=== PATIENT | male | born 1930 | race Caucasian/White ===

== ENCOUNTER 2017-12-19 08:16 | Emergency (ER) | payer MEDICARE, OTHER ==
[2017-12-19] MEDS ORDERED: Triamcinolone Acetonide 40 MG/ML 1 ML MDV INJECT ONE (08:19)
--- NOTE | 2017-12-19 08:37 | EDM.PDOC ---
ED HPI GENERAL MEDICAL PROBLEM - General Chief Complaint: Upper Extremity Injury/Pain Stated Complaint: right shoulder pain Time Seen by Provider: 12/19/17 08:16 Source of Information: Reports: Family (Son, Jacobo), Old Records ([facility] chart/EMR) History Limitations: Reports: No Limitations - History of Present Illness INITIAL COMMENTS - FREE TEXT/NARRATIVE: The patient was brought to the emergency room via private automobile by her son for evaluation of a three-day history of 10/10 progressive right shoulder pain. No history of fall, injury, etc., although the patient did drive back from [place] just prior to onset of the above symptoms. His rheumatoid arthritis is otherwise stable with high-dose daily aspirin use required. No recent history of abdominal pain, heartburn, nausea, diarrhea, melena, gross hematochezia, or any food intolerance, including fatty foods, etc.. The patient also denies any recent fever, cough, wheezing, dyspnea, etc.. The patient denies any chest pain/ pressure, heart flutter, dizziness, orthostasis, orthopnea, diaphoresis, paresthesias, recent decreased exercise tolerance, or any other anginal-type symptoms. Onset: Gradual Onset Date: 12/17/17 Duration: Constant, Getting Worse Location: Reports: Upper Extremity, Right. 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 Denies: Acetaminophen, Cold Therapy, NSAIDS Right Shoulder Pain Score (Numeric/FACES): 10 - Related Data Allergies Allergy/AdvReac Type Severity Reaction Status Date / Time No Known Allergies Allergy Verified 10/13/14 10:00 Home Meds: Home Meds Pregabalin [Lyrica] 75 mg PO BID #60 cap 03/09/15 [Rx] Aspirin 325 mg PO ASDIRECTED PRN 12/19/17 [History] Cyclobenzaprine [Flexeril] 10 mg PO TID PRN #30 tab 12/19/17 [Rx] Docusate Sodium [Colace] 100 mg PO TID PRN 12/19/17 [History] Montelukast [Singulair] 10 mg PO DAILY 12/19/17 [History] Omeprazole 20 mg PO QAM 12/19/17 [History] Tamsulosin [Flomax] 0.4 mg PO BEDTIME 12/19/17 [History] Past Medical History Cardiovascular History: Reports: Afib, Arrhythmia, Bypass, CAD, High Cholesterol , Hypertension, Stents, Other (See Below) Other Cardiovascular History: PACs and intermittent atrial fibrillation with previous Coumadin therapy Respiratory History: Reports: COPD, Intubation, Previous, Pulmonary Fibrosis, Sleep Apnea. Denies: Intubation, Difficult Gastrointestinal History: Reports: Cholelithiasis, GERD, Hemorrhoids Genitourinary History: Reports: BPH, Hydronephrosis, Renal Calculus Musculoskeletal History: Reports: Amputation, Arthritis, Back Pain, Chronic, Fracture, Neck Pain, Chronic, Osteoarthritis, RA, Other (See Below) Other Musculoskeletal History: 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 Juvenile rheumatoid arthritis Neurological History: Reports: Neuropathy, Diabetic, Neuropathy, Peripheral, Other (See Below) Other Neuro History: Acute encephalopathy r/t pain medications. CT of brain on negative for bleed or stroke. 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, Measles, MRSA, VRE - Past Surgical History HEENT Surgical History: Reports: Cataract Surgery Cardiovascular Surgical History: Reports: Coronary Artery Bypass, Other (See Below). Denies: Coronary Artery Stent Other Cardiovascular Surgeries/Procedures: CABG 3 with the patient denying previous PTCA/stents despite previous medical records GI Surgical History: Reports: Cholecystectomy Male Surgical History: Reports: Lithotripsy (ESWL), Renal Calculus Neurological Surgical History: Reports: Lumbar Spine, Spinal Fusion, Other (See Below) Other Neurological Surgeries/Procedures: L3-L5 fusion Musculoskeletal Surgical History: Reports: Amputation, Hip Replacement, Knee Replacement, Other (See Below) Other Musculoskeletal Surgeries/Procedures:: Right hip TEP, bilateral total knee arthroplasties. 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 peripheral vascular disease and postoperative infection from toenail excision - Past Imaging History Past Imaging History: Reports: CALEB Screen (Positive CALEB screen on 09/12/14), CAT Scan (CT of the brain on 02/18/15), Venous Doppler (Left leg on 08/13/10) Social & Family History - Family History Family Medical History: Noncontributory Cardiac: Reports: CAD Oncologic: Reports: Prostate, Other (See Below) Other Oncologic Family History: Father with prostate cancer - Tobacco Use Smoking Status *Q: Current Every Day Smoker Tobacco Use Within Last Twelve Months: Cigarettes Years of Tobacco use: 73 Packs/Tins Daily: 0.5 Packs/Tins Daily Comment: Patient started smoking at age 14 with maximum use of one pack per day Used Tobacco, but Quit: No Smoking Cessation Information Provided To Patient: Yes Second Hand Smoke Exposure: No Second Hand Smoke Education Provided: No - Alcohol Use Days Per Week of Alcohol Use: 0 - Recreational Drug Use Recreational Drug Use: No - Living Situation & Occupation Living situation: Reports: , Alone Occupation: Retired ED ROS GENERAL - Review of Systems Review Of Systems: ROS reveals no pertinent complaints other than HPI. ED EXAM, GENERAL - Physical Exam Exam: See Below Exam Limited By: No Limitations General Appearance: Alert, WD/WN, Moderate Distress Head: Atraumatic, Normocephalic Neck: Normal Inspection, Supple, Non-Tender, Full Range of Motion. No: Lymphadenopathy (L), Lymphadenopathy (R), Thyromegaly Respiratory/Chest: No Respiratory Distress, Lungs Clear, Normal Breath Sounds, No Accessory Muscle Use, Chest Non-Tender. No: Pleural Rub, Retractions Cardiovascular: No Edema, No Gallop, No JVD, No Murmur, No Rub, Extra Beats ( Regular rate). No: Gallop/S3, Gallop/S4, Friction Rub Peripheral Pulses: 2+: Radial (L), Radial (R) GI/Abdominal: Normal Bowel Sounds, Soft, Non-Tender, No Organomegaly, No Distention, No Abnormal Bruit, No Mass, Pelvis Stable. No: Guarding (Male) Exam: Deferred Rectal (Males) Exam: Deferred Back Exam: Normal Inspection, Full Range of Motion. No: CVA Tenderness (L), CVA Tenderness (R), Muscle Spasm Extremities: No Pedal Edema, Normal Capillary Refill, Limited Range of Motion ( Severe secondary to shoulder pain with moderate anterior right shoulder palpation pain but no effusion, instability, etc.), Other (Right leg below the knee amputation). No: Joint Swelling, Leg Pain Neurological: Alert, Oriented, CN II-XII Intact, Normal Cognition, No Motor/ Sensory Deficits, Other (Patient using motorized wheelchair). No: Normal Gait Psychiatric: Normal Affect, Normal Mood Skin Exam: Warm, Dry, Intact, Normal Color, No Rash. No: Wound/Incision Lymphatic: No Adenopathy ED GENERAL MEDICAL PROCEDURES - Additional/Other Procedure(s) Other (Free Text) Procedure(s): The anterior surface of the right shoulder was disinfected with Betadine swabs 3 and multiple alcohol wipes. Mixture of 1 mL of Kenalog, 40 mg/mL, and 1.5 mL of 1% Xylocaine was used to perform an anterior right shoulder injection by sterile technique without complications Course - Vital Signs Last Recorded V/S: Last Vital Signs Temp 36.1 C 12/19/17 08:16 Pulse 78 12/19/17 08:16 Resp 20 12/19/17 08:16 BP 117/70 12/19/17 08:16 Pulse Ox 100 12/19/17 08:16 Vital Signs - 24 hr 12/19/17 12/19/17 08:16 09:02 Temperature [ 36.1 C 36.1 C Oral] Pulse, 78 76 Peripheral [ Left Pulse Oximetry] Respiratory 20 20 Rate Blood Pressure 117/70 122/68 [Left Upper Arm ] O2 Sat by Pulse 100 100 Oximetry - Orders/Labs/Meds Orders: Active Orders 24 hr Category Date Time Status Cardiac Monitoring [RC] . DIRECTED Care 12/19/17 08:41 Ordered Shoulder Comp Rt [CR] Stat Exams 12/19/17 08:19 Ordered Obtain Past Medical Record [OM.PC] Routine Oth 12/19/17 08:19 Active Labs: None Meds: Medications Discontinued Medications Generic Name Dose Route Start Last Admin Trade Name Freq PRN Reason Stop Dose Admin Lidocaine HCl 5 ml 12/19/17 08:20 12/19/17 08:42 Xylocaine-Mpf 1% INJECT 12/19/17 08:21 5 ml ONETIME ONE Administration Triamcinolone Acetonide 40 mg 12/19/17 08:19 12/19/17 08:42 Kenalog-40 INJECT 12/19/17 08:20 40 mg ONETIME ONE Administration - Radiology Interpretation Free Text/Narrative:: X-rays of the right shoulder, complete, shows moderate to severe osteoarthritic changes including osteoporosis with biceps tendon calcification but no fracture or dislocation 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 Departure - Departure Time of Disposition: 09:25 Disposition: Home, Self-Care 01 Clinical Impression: Right shoulder pain, Rheumatoid arthritis, Peptic reflux disease, Hypertension , COPD (chronic obstructive pulmonary disease), Tobacco abuse counseling, Atrial fibrillation, Coronary artery disease - Discharge Information Prescriptions: Cyclobenzaprine [Flexeril] 10 mg PO TID PRN #30 tab PRN Reason: Spasms Instructions: Shoulder Pain, [id number] Referrals: Florencio Mendoza FORENSIC MEDICAL EXAMINER [Primary Care Provider] - Forms: ED Department Discharge Additional Instructions: 1. Followup with your regular provider in 7-10 days as directed. 2. Tylenol 650 mg by mouth every 4 hours when necessary as directed. 3. BenGay or equivalent, heating pad, and/or ice packs as directed. 4. Sedation, confusion, and dry mouth precautions with Flexeril as discussed. May decrease to one half tablets, if these symptoms occur 5. Stop all tobacco use CHAYO as directed/per provided information and consider contacting Quit [facility]ne, etc.. - Problem List & Annotations (1) Right shoulder pain SNOMED Code(s): 68831559, 65267481 Code(s): M25.511 - PAIN IN RIGHT SHOULDER Status: Acute Priority: High Onset Date: ~12/17/17 Annotation/Comment:: Shoulder injection given as above. Symptomatic relief as per discharge instructions. Patient strongly encouraged to use additional Tylenol, topical therapy, etc. as directed with range of motion exercises discussed Qualifiers: Chronicity: acute Qualified Code(s): M25.511 - Pain in right shoulder (2) Rheumatoid arthritis SNOMED Code(s): 76873427 Code(s): M06.9 - RHEUMATOID ARTHRITIS, UNSPECIFIED Status: Chronic Priority: High Annotation/Comment:: History of juvenile rheumatoid arthritis otherwise stable by history with exception of shoulder pain today Qualifiers: Rheumatoid arthritis location: multiple sites Rheumatoid factor presence: unspecified presence Qualified Code(s): M06.9 - Rheumatoid arthritis, unspecified (3) Atrial fibrillation SNOMED Code(s): 66972179 Code(s): I48.91 - UNSPECIFIED ATRIAL FIBRILLATION Status: Chronic Priority: Medium Annotation/Comment:: Previous history atrial fibrillation with Coumadin therapy, however the patient denies this at this time. Note PVCs versus PACs with apparent conduction as above. No history of chest pain or anginal type symptoms. Qualifiers: Atrial fibrillation type: paroxysmal Qualified Code(s): I48.0 - Paroxysmal atrial fibrillation (4) Coronary artery disease SNOMED Code(s): 13376458 Code(s): I25.10 - ATHSCL HEART DISEASE OF [place] CORONARY ARTERY W/O ANG PCTRS Status: Chronic Priority: Medium Current Visit: Yes Annotation/ Comment:: As above Qualifiers: Coronary Disease-Associated Artery/Lesion type: bypass graft [place] vs. transplanted heart: [place] heart Associated angina: without angina Qualified Code(s): I25.810 - Atherosclerosis of coronary artery bypass graft(s) without angina pectoris (5) COPD (chronic obstructive pulmonary disease) SNOMED Code(s): 48721107 Code(s): J44.9 - CHRONIC OBSTRUCTIVE PULMONARY DISEASE, UNSPECIFIED Status : Chronic Priority: Medium Annotation/Comment:: History of sleep apnea. No recent fever or bronchitic type symptoms despite persistent tobacco use Qualifiers: COPD type: emphysema Emphysema type: panlobular Qualified Code(s): J43.1 - Panlobular emphysema (6) Hypertension SNOMED Code(s): 90878842 Code(s): I10 - ESSENTIAL (PRIMARY) HYPERTENSION Status: Chronic Priority : Medium Annotation/Comment:: Continue to observe closely by his regular provider with history of medication noncompliance and somewhat poor preventative healthcare by his history Qualifiers: Hypertension type: essential hypertension Qualified Code(s): I10 - Essential (primary) hypertension (7) PVD (peripheral vascular disease) SNOMED Code(s): 593005628 Code(s): I73.9 - PERIPHERAL VASCULAR DISEASE, UNSPECIFIED Status: Chronic Priority: Medium Annotation/Comment:: Previous history of leg amputation as above. Otherwise stable by history (8) Peptic reflux disease SNOMED Code(s): 080197068 Code(s): K21.9 - GASTRO-ESOPHAGEAL REFLUX DISEASE WITHOUT ESOPHAGITIS Status: Chronic Priority: Medium Annotation/Comment:: Stable by history despite significant aspirin use (9) Tobacco abuse counseling SNOMED Code(s): 041816295, 005138730, 137104821 Code(s): Z71.6 - TOBACCO ABUSE COUNSELING Status: Chronic Priority: Medium Current Visit: Yes Annotation/Comment:: Tobacco cessation encouraged , however the patient is not interested in stopping smoking at this time - Problem List Review Problem List Initiated/Reviewed/Updated: Yes - My Orders Last 24 Hours: My Active Orders 12/19/17 08:19 Shoulder Comp Rt [CR] Stat Obtain Past Medical Record [OM.PC] Routine 12/19/17 08:41 Cardiac Monitoring [RC] . DIRECTED - Assessment/Plan Last 24 Hours: My Active Orders 12/19/17 08:19 Shoulder Comp Rt [CR] Stat Obtain Past Medical Record [OM.PC] Routine 12/19/17 08:41 Cardiac Monitoring [RC] . DIRECTED Assessment:: As above Plan: As above. Extensive precautions were given to the patient and his son, who are in agreement with the treatment plan. See Patient Instructions for further treatment and plan.
[2017-12-19 09:32] VITALS: BP 122/68
== END 2017-12-19 09:30 | disposition home or self-care (01) ==
LOC: LL.ED 08:16
DX: M06.9 Rheumatoid arthritis, unspecified (principal); M25.511 Pain in right shoulder; I48.91 Unspecified atrial fibrillation; I25.810 Atherosclerosis of coronary artery bypass graft(s) without angina pectoris; F17.210 Nicotine dependence, cigarettes, uncomplicated; Z95.1 Presence of aortocoronary bypass graft; E78.00 Pure hypercholesterolemia, unspecified; I10 Essential (primary) hypertension; J44.9 Chronic obstructive pulmonary disease, unspecified; K21.9 Gastro-esophageal reflux disease without esophagitis; Z87.442 Personal history of urinary calculi; E11.40 Type 2 diabetes mellitus with diabetic neuropathy, unspecified; Z86.19 Personal history of other infectious and parasitic diseases; Z86.14 Personal history of Methicillin resistant Staphylococcus aureus infection; Z79.82 Long term (current) use of aspirin; Z79.899 Other long term (current) drug therapy
CPT/HCPCS: 73030; 99284; J3301

== ENCOUNTER 2020-06-14 02:37 | Emergency (ER) | payer MEDICARE, OTHER ==
[2020-06-14] MEDS ORDERED: cefTRIAXone 2 GM in Sodium Chloride 0.9% 100 ML IV ONE (04:00)
[2020-06-14] MEDS ORDERED: Piperacillin/Tazobactam 4.5 GM in Sodium Chloride 0.9% 100 ML IV ONE (04:01)
[2020-06-14] MEDS ORDERED: Azithromycin 500 MG in Sodium Chloride 0.9% 250 ML IV ONE (04:02)
--- NOTE | 2020-06-14 04:08 | EDM.PDOC ---
ED HPI GENERAL MEDICAL PROBLEM - General Chief Complaint: General Stated Complaint: SOB Pneumonia Time Seen by Provider: 06/14/20 02:45 Source of Information: Reports: Patient, EMS, Family History Limitations: Reports: Altered Mental Status, Respiratory Distress - History of Present Illness INITIAL COMMENTS - FREE TEXT/NARRATIVE: Pt brought to ER via EMS for SOB and confusion Pt seen in clinic 06/07 for bilateral pneumonia and started on Zithromax, prednisone and an inhaler Pt with worsening symptoms tonight No known Covid exposure Unknown if tested for Covid Pt much more confused tonight EMS notes sats 80% on RA initially with RR 30's SBP in the 90's HR in the low 100's Onset: Gradual Duration: Day(s): Location: Reports: Chest Associated Symptoms: Reports: Shortness of Breath, Other (Confusion) - Related Data Allergies Allergy/AdvReac Type Severity Reaction Status Date / Time No Known Allergies Allergy Verified 06/14/20 02:55 Home Meds: Home Meds Pregabalin [Lyrica] 75 mg PO BID #60 cap 03/09/15 [Rx] Aspirin 325 mg PO ASDIRECTED PRN 12/19/17 [History] Cyclobenzaprine [Flexeril] 10 mg PO TID PRN #30 tab 12/19/17 [Rx] Docusate Sodium [Colace] 100 mg PO TID PRN 12/19/17 [History] Montelukast [Singulair] 10 mg PO DAILY 12/19/17 [History] Omeprazole 20 mg PO QAM 12/19/17 [History] Tamsulosin [Flomax] 0.4 mg PO BEDTIME 12/19/17 [History] Past Medical History Cardiovascular History: Reports: Afib, Arrhythmia, Bypass, CAD, High Cholesterol, Hypertension, Stents, Other (See Below) Other Cardiovascular History: PACs and intermittent atrial fibrillation with previous Coumadin therapy Respiratory History: Reports: COPD, Intubation, Previous, Pulmonary Fibrosis, Sleep Apnea Gastrointestinal History: Reports: Cholelithiasis, GERD, Hemorrhoids Genitourinary History: Reports: BPH, Hydronephrosis, Renal Calculus Musculoskeletal History: Reports: Amputation, Arthritis, Back Pain, Chronic, Fracture, Neck Pain, Chronic, Osteoarthritis, RA, Other (See Below) Other Musculoskeletal History: 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 Juvenile rheumatoid arthritis Neurological History: Reports: Neuropathy, Diabetic, Neuropathy, Peripheral, Other (See Below) Other Neuro History: Acute encephalopathy r/t pain medications. CT of brain on 02/18/15 negative for bleed or stroke. 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, Measles, MRSA, VRE - Past Surgical History HEENT Surgical History: Reports: Cataract Surgery Cardiovascular Surgical History: Reports: Coronary Artery Bypass, Other (See Below) Other Cardiovascular Surgeries/Procedures: CABG 3 with the patient denying previous PTCA/stents despite previous medical records GI Surgical History: Reports: Cholecystectomy Male Surgical History: Reports: Lithotripsy (ESWL), Renal Calculus Neurological Surgical History: Reports: Lumbar Spine, Spinal Fusion, Other (See Below) Other Neurological Surgeries/Procedures: L3-L5 fusion Musculoskeletal Surgical History: Reports: Amputation, Hip Replacement, Knee Replacement, Other (See Below) Other Musculoskeletal Surgeries/Procedures:: Right hip TEP, bilateral total knee arthroplasties. 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 peripheral vascular disease and postoperative infection from toenail excision - Past Imaging History Past Imaging History: Reports: CALEB Screen (Positive CALEB screen on 09/12/14), CAT Scan (CT of the brain on 02/18/15), Venous Doppler (Left leg on 08/13/10) Social & Family History - Family History Family Medical History: Noncontributory Cardiac: Reports: CAD Oncologic: Reports: Prostate, Other (See Below) Other Oncologic Family History: Father with prostate cancer - Tobacco Use Smoking Status *Q: Current Every Day Smoker Years of Tobacco use: 50 Packs/Tins Daily: 1.5 - Caffeine Use Caffeine Use: Reports: None - Recreational Drug Use Recreational Drug Use: No - Living Situation & Occupation Living situation: Reports: , Alone Occupation: Retired ED ROS GENERAL - Review of Systems Review Of Systems: See Below Constitutional: Reports: Weakness HEENT: Reports: No Symptoms Respiratory: Reports: Shortness of Breath Cardiovascular: Reports: Dyspnea on Exertion, Edema GI/Abdominal: Reports: No Symptoms Musculoskeletal: Reports: No Symptoms Skin: Reports: No Symptoms Neurological: Reports: Confusion ED EXAM, GENERAL - Physical Exam Exam: See Below Exam Limited By: Respiratory Distress General Appearance: Lethargic, Moderate Distress Throat/Mouth: Normal Oropharynx Neck: Supple Respiratory/Chest: Decreased Breath Sounds, Other (RR 30's Increased work of breathing Using accesory muscles) Cardiovascular: Tachycardia (Rate 105) GI/Abdominal: Soft Extremities: Pedal Edema (3+ pitting edema bilaterally) Neurological: Confused Course - Vital Signs Last Recorded V/S: Last Vital Signs Temp 98.3 F 06/14/20 02:40 Pulse 90 06/14/20 03:43 Resp 32 H 06/14/20 03:43 BP 109/58 L 06/14/20 03:43 Pulse Ox 95 06/14/20 03:43 - Orders/Labs/Meds Orders: Active Orders 24 hr Category Date Time Status Chest 1V Frontal [CR] Stat Exams 06/14/20 02:41 Taken CULTURE BLOOD [BC] Stat Lab 06/14/20 03:05 Received CULTURE BLOOD [BC] Stat Lab 06/14/20 03:10 Received Azithromycin [Zithromax] 500 mg Med 06/14/20 04:02 Ordered Sodium Chloride 0.9% [Normal Saline] 250 ml IV ONETIME Piperacillin/Tazobactam [Zosyn] 4.5 gm Med 06/14/20 04:01 Ordered Sodium Chloride 0.9% [Normal Saline] 100 ml IV ONETIME Vancomycin 1 gm Med 06/14/20 04:00 Ordered Sodium Chloride 0.9% [Normal Saline] 250 ml IV ONETIME cefTRIAXone [Rocephin] 2 gm Med 06/14/20 04:00 Ordered Sodium Chloride 0.9% [Normal Saline] 100 ml IV ONETIME Blood Culture x2 Reflex Set [OM.PC] Stat Oth 06/14/20 02:41 Ordered Medication Orders Ceftriaxone Sodium 2 gm/ (Sodium Chloride) 100 mls @ 200 mls/hr IV ONETIME ONE Stop: 06/14/20 04:29 Vancomycin HCl 1 gm/ Sodium (Chloride) 250 mls @ 165 mls/hr IV ONETIME ONE Stop: 06/14/20 05:30 Piperacillin Sod/Tazobactam (Sod 4.5 gm/ Sodium Chloride) 100 mls @ 200 mls/hr IV ONETIME ONE Stop: 06/14/20 04:30 Labs: Laboratory Tests 06/14/20 06/14/20 06/14/20 Range/Units 03:05 03:05 03:05 WBC 9.8 (4.0-10.2) K/uL RBC 3.99 L (4.33-5.41) M/uL Hgb 11.5 L (13.1-16.8) g/dL Hct 34.1 L (39.0-49.0) % MCV 85.5 (84.0-98.0) fL MCH 28.8 (28.2-33.3) pg MCHC 33.7 (31.7-36.0) g/dL RDW 17.1 H (11.2-14.1) % Plt Count 181 (150-350) K/uL Neut % (Auto) 54.1 (45.0-80.0) % Lymph % (Auto) 18.0 (10.0-50.0) % [place] % (Auto) 5.0 (2.0-14.0) % Eos % (Auto) 22.2 H (0.0-5.0) % Baso % (Auto) 0.7 (0.0-2.0) % Neut # (Auto) 5.30 (1.40-7.00) K/uL Lymph # (Auto) 1.77 (0.50-3.50) K/uL [place] # (Auto) 0.49 (0.00-1.00) K/uL Eos # (Auto) 2.18 H (0.00-0.50) K/uL Baso # (Auto) 0.07 (0.00-0.20) K/uL Sodium 139 (136-145) mmol/L Potassium 4.2 (3.5-5.1) mmol/L Chloride 108 H (98-107) mmol/L Carbon Dioxide 16.5 L (21.0-32.0) mmol/L BUN 38 H (7-18) mg/dL Creatinine 1.50 H (0.51-1.17) mg/dL Est Cr Clr Drug Dosing 35.62 mL/min Estimated GFR (MDRD) 44 mL/min Glucose 91 (74-106) mg/dL Lactic Acid 0.6 (0.4-2.0) mmol/L Calcium 7.9 L (8.5-10.1) mg/dL Total Bilirubin 0.4 (0.2-1.0) mg/dL AST 36 (15-37) U/L ALT 20 (12-78) U/L Alkaline Phosphatase 89 (46-116) IU/L Total Protein 6.8 (6.4-8.2) g/dL Albumin 2.5 L (3.4-5.0) g/dL Meds: Medications Generic Name Dose Route Start Last Admin Trade Name Freq PRN Reason Stop Dose Admin Ceftriaxone Sodium 2 gm/ 100 mls @ 200 mls/hr 06/14/20 04:00 Sodium Chloride IV 06/14/20 04:29 ONETIME ONE Vancomycin HCl 1 gm/ Sodium 250 mls @ 165 mls/hr 06/14/20 04:00 Chloride IV 06/14/20 05:30 ONETIME ONE Piperacillin Sod/Tazobactam 100 mls @ 200 mls/hr 06/14/20 04:01 Sod 4.5 gm/ Sodium Chloride IV 06/14/20 04:30 ONETIME ONE - Re-Assessments/Exams Free Text/Narrative Re-Assessment/Exam: 06/14/20 04:09 Pt remains with increased work of breathing with RR in the 30's but sats 95% on 2 L Increased oxygen not improving RR or work of breathing Pt remains tachycardic and quite confused D/W Dr Blevins [facility] ER Will accept in transfer Transfer via ambulance Rocephin 2 gm IV, Zosyn 4.5 gm IV, Vanco 1 gm IV and Zithromax 500 mg IV ordered Will continue supplemental oxygen CXR shows bilateral pneumonia See lab Departure - Departure Time of Disposition: 04:15 Disposition: DC/Tfer to Acute Hospital 02 Clinical Impression: Pneumonia - Discharge Information Referrals: Nessa Cueva PA [Primary Care Provider] - Sepsis Event Note (ED) - Evaluation Sepsis Screening Result: Possible Severe Sepsis Risk - Focused Exam Vital Signs: Vital Signs Temp Pulse Resp BP Pulse Ox 06/14/20 03:43 90 32 H 109/58 L 95 06/14/20 03:13 93 14 102/56 L 96 06/14/20 02:40 98.3 F 104 H 28 H 104/55 L 94 L - My Orders Last 24 Hours: My Active Orders 06/14/20 02:41 Chest 1V Frontal [CR] Stat Blood Culture x2 Reflex Set [OM.PC] Stat 06/14/20 03:05 CULTURE BLOOD [BC] Stat 06/14/20 03:10 CULTURE BLOOD [BC] Stat 06/14/20 04:00 Vancomycin 1 gm Sodium Chloride 0.9% [Normal Saline] 250 ml IV ONETIME cefTRIAXone [Rocephin] 2 gm Sodium Chloride 0.9% [Normal Saline] 100 ml IV ONETIME 06/14/20 04:01 Piperacillin/Tazobactam [Zosyn] 4.5 gm Sodium Chloride 0.9% [Normal Saline] 100 ml IV ONETIME 06/14/20 04:02 Azithromycin [Zithromax] 500 mg Sodium Chloride 0.9% [Normal Saline] 250 ml IV ONETIME - Assessment/Plan Last 24 Hours: My Active Orders 06/14/20 02:41 Chest 1V Frontal [CR] Stat Blood Culture x2 Reflex Set [OM.PC] Stat 06/14/20 03:05 CULTURE BLOOD [BC] Stat 06/14/20 03:10 CULTURE BLOOD [BC] Stat 06/14/20 04:00 Vancomycin 1 gm Sodium Chloride 0.9% [Normal Saline] 250 ml IV ONETIME cefTRIAXone [Rocephin] 2 gm Sodium Chloride 0.9% [Normal Saline] 100 ml IV ONETIME 06/14/20 04:01 Piperacillin/Tazobactam [Zosyn] 4.5 gm Sodium Chloride 0.9% [Normal Saline] 100 ml IV ONETIME 06/14/20 04:02 Azithromycin [Zithromax] 500 mg Sodium Chloride 0.9% [Normal Saline] 250 ml IV ONETIME
[2020-06-14] MEDS ORDERED: Sodium Chloride 0.9% 10 ML Syringe FLUSH PRN (04:21)
[2020-06-14 04:43] VITALS: BP 120/56; PULSE 100
== END 2020-06-14 05:45 ==
LOC: LL.ED 02:37
DX: J18.9 Pneumonia, unspecified organism (principal); J44.9 Chronic obstructive pulmonary disease, unspecified; I10 Essential (primary) hypertension; I25.10 Atherosclerotic heart disease of native coronary artery without angina pectoris; I48.91 Unspecified atrial fibrillation; E11.42 Type 2 diabetes mellitus with diabetic polyneuropathy; N40.0 Benign prostatic hyperplasia without lower urinary tract symptoms; F17.210 Nicotine dependence, cigarettes, uncomplicated; Z95.1 Presence of aortocoronary bypass graft; Z90.49 Acquired absence of other specified parts of digestive tract; Z79.899 Other long term (current) drug therapy
CPT/HCPCS: 36415; 71045; 80053; 83605; 85025; 87040; 96365; 96367; 99285; J0696; J2543; J3370; J7050; 99284

== ENCOUNTER 2020-07-13 16:49 | Emergency (ER) | payer MEDICARE, OTHER ==
[2020-07-13] MEDS ORDERED: Nystatin Crm 30 GM Tube TOP SCH (17:22)
[2020-07-13 17:34] LABS: CHLORIDE,CL 104 mmol/L (98-107); SODIUM,NA 139 mmol/L (136-145)
--- NOTE | 2020-07-13 17:35 | EDM.PDOC ---
ED HPI GENERAL MEDICAL PROBLEM - General Chief Complaint: Skin Complaint Stated Complaint: rash Time Seen by Provider: 07/13/20 17:10 Source of Information: Reports: Patient History Limitations: Reports: No Limitations - History of Present Illness INITIAL COMMENTS - FREE TEXT/NARRATIVE: He presents to the emergency department for evaluation of a rash on the left chest wall. He felt some dampness in the area underneath the left breast when he felt inside it was very wet. He took his shirt off and was noted to have a bright red blistery rash underneath the breast tissue. It is tender to the touch but otherwise not really painful. Mildly pruritic. Rash started today. He does not think it was present this morning when he got dressed. He denies any shortness of breath or cough. No rash anywhere else. No fever or chills. No known exposures. - Related Data Allergies Allergy/AdvReac Type Severity Reaction Status Date / Time No Known Allergies Allergy Verified 06/14/20 02:55 Home Meds: Home Meds Aspirin 325 mg PO ASDIRECTED PRN 12/19/17 [History] Docusate Sodium [Colace] 100 mg PO TID PRN 12/19/17 [History] Omeprazole 20 mg PO QAM 12/19/17 [History] Gabapentin [Neurontin] 300 mg PO QPM 07/13/20 [History] Nystatin [Nystatin Crm] 1 gm TOP TID 7 Days #30 tube 07/13/20 [Rx] Past Medical History Cardiovascular History: Reports: Afib, Arrhythmia, Bypass, CAD, High Cholesterol, Hypertension, Stents, Other (See Below) Other Cardiovascular History: PACs and intermittent atrial fibrillation with previous Coumadin therapy Respiratory History: Reports: COPD, Intubation, Previous, Pulmonary Fibrosis, Sleep Apnea Gastrointestinal History: Reports: Cholelithiasis, GERD, Hemorrhoids Genitourinary History: Reports: BPH, Hydronephrosis, Renal Calculus Musculoskeletal History: Reports: Amputation, Arthritis, Back Pain, Chronic, Fracture, Neck Pain, Chronic, Osteoarthritis, RA, Other (See Below) Other Musculoskeletal History: 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 Juvenile rheumatoid arthritis Neurological History: Reports: Neuropathy, Diabetic, Neuropathy, Peripheral, Other (See Below) Other Neuro History: Acute encephalopathy r/t pain medications. CT of brain on 02/18/15 negative for bleed or stroke. 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, Measles, MRSA, VRE - Past Surgical History HEENT Surgical History: Reports: Cataract Surgery Cardiovascular Surgical History: Reports: Coronary Artery Bypass, Other (See Below) Other Cardiovascular Surgeries/Procedures: CABG 3 with the patient denying previous PTCA/stents despite previous medical records GI Surgical History: Reports: Cholecystectomy Male Surgical History: Reports: Lithotripsy (ESWL), Renal Calculus Neurological Surgical History: Reports: Lumbar Spine, Spinal Fusion, Other (See Below) Other Neurological Surgeries/Procedures: L3-L5 fusion Musculoskeletal Surgical History: Reports: Amputation, Hip Replacement, Knee Replacement, Other (See Below) Other Musculoskeletal Surgeries/Procedures:: Right hip TEP, bilateral total knee arthroplasties. 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 peripheral vascular disease and postoperative infection from toenail excision - Past Imaging History Past Imaging History: Reports: CALEB Screen (Positive CALEB screen on 09/12/14), CAT Scan (CT of the brain on 02/18/15), Venous Doppler (Left leg on 08/13/10) Social & Family History - Family History Family Medical History: Noncontributory Cardiac: Reports: CAD Oncologic: Reports: Prostate, Other (See Below) Other Oncologic Family History: Father with prostate cancer - Caffeine Use Caffeine Use: Reports: None - Living Situation & Occupation Living situation: Reports: , Alone Occupation: Retired ED ROS GENERAL - Review of Systems Review Of Systems: See Below Constitutional: Denies: Fever, Chills HEENT: Reports: No Symptoms Respiratory: Denies: Shortness of Breath, Cough Cardiovascular: Denies: Chest Pain, Palpitations Endocrine: Denies: Fatigue, Polydypsia GI/Abdominal: Denies: Abdominal Pain, Nausea, Vomiting : Denies: Discharge, Dysuria Musculoskeletal: Reports: No Symptoms Skin: Reports: Rash Neurological: Denies: Dizziness Psychiatric: Denies: Anxiety, Depression ED EXAM, SKIN/RASH Exam: See Below Exam Limited By: No Limitations General Appearance: Alert, WD/WN, No Apparent Distress Respiratory/Chest: No Respiratory Distress, Lungs Clear, Normal Breath Sounds Cardiovascular: Regular Rate, Rhythm, No Edema, No Gallop, No Murmur Skin: Other (Right red macular rash with clear drainage underneath the left [address]. Is very tender in that area. Few surrounding satellite lesions. No other rash noted.) Course - Orders/Labs/Meds Orders: Active Orders 24 hr Category Date Time Status Nystatin [Nystatin Crm] Med 07/13/20 17:22 Active 1 gm TOP TID Medication Orders Nystatin (Nystatin Crm) 1 gm TOP TID MARTELL Last Admin: 07/13/20 17:30 Dose: 1 applic Documented by: ROMY Labs: Laboratory Tests 07/13/20 07/13/20 Range/Units 17:20 17:20 WBC 7.8 (4.0-10.2) K/uL RBC 4.31 L (4.33-5.41) M/uL Hgb 12.5 L (13.1-16.8) g/dL Hct 37.9 L (39.0-49.0) % MCV 87.9 (84.0-98.0) fL MCH 29.0 (28.2-33.3) pg MCHC 33.0 (31.7-36.0) g/dL RDW 16.0 H (11.2-14.1) % Plt Count 127 L (150-350) K/uL Neut % (Auto) 60.3 (45.0-80.0) % Lymph % (Auto) 26.0 (10.0-50.0) % [place] % (Auto) 9.6 (2.0-14.0) % Eos % (Auto) 3.5 (0.0-5.0) % Baso % (Auto) 0.6 (0.0-2.0) % Neut # (Auto) 4.70 (1.40-7.00) K/uL Lymph # (Auto) 2.03 (0.50-3.50) K/uL [place] # (Auto) 0.75 (0.00-1.00) K/uL Eos # (Auto) 0.27 (0.00-0.50) K/uL Baso # (Auto) 0.05 (0.00-0.20) K/uL Sodium 139 (136-145) mmol/L Potassium 4.4 (3.5-5.1) mmol/L Chloride 104 (98-107) mmol/L Carbon Dioxide 26.3 (21.0-32.0) mmol/L BUN 21 H (7-18) mg/dL Creatinine 1.19 H (0.51-1.17) mg/dL Est Cr Clr Drug Dosing TNP Estimated GFR (MDRD) 58 mL/min Glucose 88 (74-106) mg/dL Calcium 7.8 L (8.5-10.1) mg/dL Total Bilirubin 0.3 (0.2-1.0) mg/dL AST 14 L (15-37) U/L ALT 19 (12-78) U/L Alkaline Phosphatase 73 (46-116) IU/L Total Protein 5.9 L (6.4-8.2) g/dL Albumin 2.6 L (3.4-5.0) g/dL Meds: Medications Generic Name Dose Route Start Last Admin Trade Name Freq PRN Reason Stop Dose Admin Nystatin 1 gm 07/13/20 17:22 07/13/20 17:30 Nystatin Crm TOP 1 applic TID MARTELL Administration Departure - Departure Time of Disposition: 17:37 Disposition: Home, Self-Care 01 Condition: Good Clinical Impression: Fungal rash of torso - Discharge Information *PRESCRIPTION DRUG MONITORING PROGRAM REVIEWED*: No *COPY OF PRESCRIPTION DRUG MONITORING REPORT IN PATIENT JORDYN: No Prescriptions: Nystatin [Nystatin Crm] 1 gm TOP TID 7 Days #30 tube Referrals: PCP,None [Primary Care Provider] - Forms: ED Department Discharge Additional Instructions: Apply nystatin cream to the rash 3 times daily. Okay to use a medicated talcum powder in the area as well. If rash is worsening tomorrow he should return and would consider antibiotic treatment. Follow-up as needed. - My Orders Last 24 Hours: My Active Orders 07/13/20 17:22 Nystatin [Nystatin Crm] 1 gm TOP TID - Assessment/Plan Last 24 Hours: My Active Orders 07/13/20 17:22 Nystatin [Nystatin Crm] 1 gm TOP TID
[2020-07-13 19:14] VITALS: BP 154/52; PULSE 68
== END 2020-07-13 18:15 | disposition home or self-care (01) ==
LOC: LL.ED 16:49
DX: B36.9 Superficial mycosis, unspecified (principal); I48.91 Unspecified atrial fibrillation; I10 Essential (primary) hypertension; J44.9 Chronic obstructive pulmonary disease, unspecified; M19.90 Unspecified osteoarthritis, unspecified site; E11.40 Type 2 diabetes mellitus with diabetic neuropathy, unspecified; Z95.1 Presence of aortocoronary bypass graft; Z79.82 Long term (current) use of aspirin; Z79.899 Other long term (current) drug therapy; Z95.5 Presence of coronary angioplasty implant and graft; Z79.01 Long term (current) use of anticoagulants
CPT/HCPCS: 36415; 80053; 85025; 99283; A9270-GY

== ENCOUNTER 2020-07-29 13:57 | Inpatient (IN) | payer MEDICARE, OTHER ==
[2020-07-29] MEDS ORDERED: Sodium Chloride 0.9% 10 ML Syringe FLUSH PRN (14:04)
[2020-07-29 14:54] LABS: CHLORIDE,CL 108 mmol/L (98-107); SODIUM,NA 141 mmol/L (136-145)
--- NOTE | 2020-07-29 14:56 | EDM.PDOC ---
ED HPI GENERAL MEDICAL PROBLEM - General Chief Complaint: General Stated Complaint: Weakness Time Seen by Provider: 07/29/20 14:06 Source of Information: Reports: Patient, Family History Limitations: Reports: No Limitations - History of Present Illness INITIAL COMMENTS - FREE TEXT/NARRATIVE: Patient comes to ER for evaluation of increased weakness. Usually can transfer self but now needs assist from two other people. Increased confusion. Episodes of shaking/uncertain if it is chills. Appears to have more rapid/shallow respirations than usual. No fever/chills. No HEENT changes/runny nose/sore throat. No new cough/wheeze. No pleuritic pain. No GI changes such as nausea/vomiting/bowel changes. No urinary complaints. No new neuro changes/focal weakness. - Related Data Allergies Allergy/AdvReac Type Severity Reaction Status Date / Time morphine Allergy Cannot Verified 07/29/20 17:54 Remember Home Meds: Home Meds Aspirin 325 mg PO ASDIRECTED PRN 12/19/17 [History] Docusate Sodium [Colace] 100 mg PO TID PRN 12/19/17 [History] Omeprazole 20 mg PO QAM 12/19/17 [History] Gabapentin [Neurontin] 300 mg PO TID@,,07/13/20 [History] Albuterol/Ipratropium [DuoNeb 3.0-0.5 MG/3 ML] 3 ml IN Q4HR PRN 07/29/20 [History] Budesonide [Pulmicort] 2 ml IN BID@07/29/20 [History] Past Medical History Cardiovascular History: Reports: Afib, Arrhythmia, Bypass, CAD, High Cholesterol, Hypertension, Stents, Other (See Below) Other Cardiovascular History: PACs and intermittent atrial fibrillation with previous Coumadin therapy Respiratory History: Reports: COPD, Intubation, Previous, Pulmonary Fibrosis, Sleep Apnea Gastrointestinal History: Reports: Cholelithiasis, GERD, Hemorrhoids Genitourinary History: Reports: BPH, Hydronephrosis, Renal Calculus Musculoskeletal History: Reports: Amputation, Arthritis, Back Pain, Chronic, Fracture, Neck Pain, Chronic, Osteoarthritis, RA, Other (See Below) Other Musculoskeletal History: 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 Juvenile rheumatoid arthritis Neurological History: Reports: Neuropathy, Diabetic, Neuropathy, Peripheral, Other (See Below) Other Neuro History: Acute encephalopathy r/t pain medications. CT of brain on 02/18/15 negative for bleed or stroke. 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, Measles, MRSA, VRE - Past Surgical History HEENT Surgical History: Reports: Cataract Surgery Cardiovascular Surgical History: Reports: Coronary Artery Bypass, Other (See Below) Other Cardiovascular Surgeries/Procedures: CABG 3 with the patient denying previous PTCA/stents despite previous medical records GI Surgical History: Reports: Cholecystectomy Male Surgical History: Reports: Lithotripsy (ESWL), Renal Calculus Neurological Surgical History: Reports: Lumbar Spine, Spinal Fusion, Other (See Below) Other Neurological Surgeries/Procedures: L3-L5 fusion Musculoskeletal Surgical History: Reports: Amputation, Hip Replacement, Knee Replacement, Other (See Below) Other Musculoskeletal Surgeries/Procedures:: Right hip TEP, bilateral total knee arthroplasties. Left leg below the knee amputation 2004 secondary to his peripheral vascular disease and postoperative infection from toenail excision - Past Imaging History Past Imaging History: Reports: CALEB Screen (Positive CALEB screen on 09/12/14), CAT Scan (CT of the brain on 02/18/15), Venous Doppler (Left leg on 08/13/10) Social & Family History - Family History Family Medical History: Noncontributory Cardiac: Reports: CAD Oncologic: Reports: Prostate, Other (See Below) Other Oncologic Family History: Father with prostate cancer - Caffeine Use Caffeine Use: Reports: Coffee - Living Situation & Occupation Living situation: Reports: , Alone Occupation: Retired ED ROS GENERAL - Review of Systems Review Of Systems: Comprehensive ROS is negative, except as noted in HPI. ED EXAM, GENERAL - Physical Exam Exam: See Below Exam Limited By: No Limitations General Appearance: Alert, No Apparent Distress, Other (aggressively motoring around in motorized wheelchair/inpatient/wants to go home/brings chair into contact with providers in ER. ) Eye Exam: Bilateral Eye: EOMI, PERRL Ears: Hearing Grossly Normal Nose: No: Nasal Deformity, Nasal Swelling, Nasal Drainage Throat/Mouth: Normal Lips, Normal Voice, No Airway Compromise Head: Atraumatic, Normocephalic Neck: Supple Respiratory/Chest: No Accessory Muscle Use, Chest Non-Tender, Rhonchi (bilaterally, worse on right). No: Stridor, Retractions GI/Abdominal: Soft, Non-Tender, No Distention (Male) Exam: Deferred Rectal (Males) Exam: Deferred Back Exam: Other (purplish discoloration of buttocks/two small circular errosions/one on each buttock that per electrical engineering technician is due to the snaps from patient's jeans that he sits in all day for days on end/refuses to remove). No: CVA Tenderness (L), CVA Tenderness (R), Muscle Spasm Extremities: Other (mild edema left lower leg/amputation below left knee. ) Neurological: Alert, Oriented, Normal Cognition Psychiatric: Normal Affect, Normal Mood Skin Exam: Warm, Dry, Other (see above) Course - Vital Signs Last Recorded V/S: Last Vital Signs Temp 37.6 C 07/29/20 16:40 Pulse 101 H 07/29/20 16:40 Resp 28 H 07/29/20 16:40 BP 104/48 L 07/29/20 16:40 Pulse Ox 93 L 07/29/20 16:40 - Orders/Labs/Meds Orders: Active Orders 24 hr Category Date Time Status RT Post Treatment Assessment [RC] Click to Edit Care 07/29/20 16:28 Active RT Pre-Treatment Assessment [RC] Click to Edit Care 07/29/20 16:28 Active Chest 1V Frontal [CR] Stat Exams 07/29/20 14:05 Taken PE Chest [Ang Chest] [CT] Stat Exams 07/29/20 16:20 Taken CORONAVIRUS COVID-19 MATIAS [MOLEC] Routine Lab 07/29/20 14:04 Ordered CULTURE BLOOD [BC] Stat Lab 07/29/20 14:10 Received CULTURE BLOOD [BC] Stat Lab 07/29/20 14:20 Received Albuterol/Ipratropium [Combivent Respimat] Med 07/29/20 20:00 Active 1 gm INH QID Azithromycin [Zithromax] 500 mg Med 07/29/20 16:30 Active Sodium Chloride 0.9% [Normal Saline] 250 ml IV Q24H Oseltamivir [Tamiflu] Med 07/29/20 16:30 Active 75 mg PO DAILY Sodium Chloride 0.9% [Normal Saline] 1,000 ml Med 07/29/20 16:22 Active IV .BOLUS Sodium Chloride 0.9% [Normal Saline] 250 ml Med 07/29/20 16:30 Active IV ASDIRECTED Sodium Chloride 0.9% [Saline Flush] Med 07/29/20 14:04 Active 10 ml FLUSH ASDIRECTED PRN cefTRIAXone [Rocephin] 1 gm Med 07/29/20 16:30 Active Sodium Chloride 0.9% [Normal Saline] 100 ml IV Q24H Blood Culture x2 Reflex Set [OM.PC] Stat Ot 07/29/20 14:04 Ordered Isolation [COMM] Routine Oth 07/29/20 14:50 Active Saline Lock Insert [OM.PC] Routine Ot 07/29/20 14:04 Ordered Medication Orders Albuterol/Ipratropium (Combivent Respimat) 1 gm INH QID [facility] Sodium Chloride (Normal Saline) 1,000 mls @ 75 mls/hr IV .BOLUS ONE Stop: 07/30/20 05:41 Sodium Chloride (Normal Saline) 250 mls @ 500 mls/hr IV ASDIRECTED [facility] Last Admin: 07/29/20 17:00 Dose: 500 mls/hr Documented by: SILVIA Ceftriaxone Sodium 1 gm/ (Sodium Chloride) 100 mls @ 200 mls/hr IV Q24H [facility] Last Admin: 07/29/20 18:00 Dose: 200 mls/hr Documented by: SILVIA Azithromycin 500 mg/ Sodium (Chloride) 250 mls @ 250 mls/hr IV Q24H [facility] Oseltamivir Phosphate (Tamiflu) 75 mg PO DAILY [facility] Last Admin: 07/29/20 17:56 Dose: 75 mg Documented by: SILVIA Sodium Chloride (Saline Flush) 10 ml FLUSH ASDIRECTED PRN PRN Reason: Keep Vein Open Labs: Laboratory Tests 07/29/20 07/29/20 07/29/20 Range/Units 14:04 14:10 14:10 WBC 8.8 (4.0-10.2) K/uL RBC 3.79 L (4.33-5.41) M/uL Hgb 10.6 L D (13.1-16.8) g/dL Hct 32.5 L (39.0-49.0) % MCV 85.8 (84.0-98.0) fL MCH 28.0 L (28.2-33.3) pg MCHC 32.6 (31.7-36.0) g/dL RDW 15.9 H (11.2-14.1) % Plt Count 213 D (150-350) K/uL Neut % (Auto) 66.7 (45.0-80.0) % Lymph % (Auto) 22.7 (10.0-50.0) % Pope % (Auto) 8.5 (2.0-14.0) % Eos % (Auto) 0.6 (0.0-5.0) % Baso % (Auto) 1.5 (0.0-2.0) % Neut # (Auto) 5.86 (1.40-7.00) K/uL Lymph # (Auto) 1.99 (0.50-3.50) K/uL Pope # (Auto) 0.75 (0.00-1.00) K/uL Eos # (Auto) 0.05 (0.00-0.50) K/uL Baso # (Auto) 0.13 (0.00-0.20) K/uL D-Dimer, Quantitative 1420 H (0-400) ng/mL Sodium (136-145) mmol/L Potassium (3.5-5.1) mmol/L Chloride (98-107) mmol/L Carbon Dioxide (21.0-32.0) mmol/L BUN (7-18) mg/dL Creatinine (0.51-1.17) mg/dL Est Cr Clr Drug Dosing Estimated GFR (MDRD) mL/min Glucose (74-106) mg/dL Lactic Acid (0.4-2.0) mmol/L Calcium (8.5-10.1) mg/dL Magnesium (1.8-2.4) mg/dL Total Bilirubin (0.2-1.0) mg/dL AST (15-37) U/L ALT (12-78) U/L Alkaline Phosphatase (46-116) IU/L Troponin I (0.000-0.056) ng/mL NT-Pro-B Natriuret Pep (0-125) pg/mL Total Protein (6.4-8.2) g/dL Albumin (3.4-5.0) g/dL Specimen Type Urinqcath Urine Color Dark yellow Urine Appearance Slightly cloudy Urine pH 5.0 (5.0-9.0) Ur Specific [place] 1.025 (1.005-1.030) Urine Protein 30 H (NEGATIVE) mg/dL Urine Glucose (UA) Negative (NEGATIVE) mg/dL Urine Ketones 15 H (NEGATIVE) mg/dL Urine Occult Blood Negative (NEGATIVE) Urine Nitrite Negative (NEGATIVE) Urine Bilirubin Negative (NEGATIVE) Urine Urobilinogen 0.2 (0.2-1.0) E.U./dL Ur Leukocyte Esterase Negative (NEGATIVE) U Hyaline Cast (Auto) Rare Urine RBC Not seen /HPF Urine WBC Not seen /HPF Ur Epithelial Cells Rare /LPF Granular Casts (Auto) Rare 07/29/20 07/29/20 Range/Units 14:10 14:10 WBC (4.0-10.2) K/uL RBC (4.33-5.41) M/uL Hgb (13.1-16.8) g/dL Hct (39.0-49.0) % MCV (84.0-98.0) fL MCH (28.2-33.3) pg MCHC (31.7-36.0) g/dL RDW (11.2-14.1) % Plt Count (150-350) K/uL Neut % (Auto) (45.0-80.0) % Lymph % (Auto) (10.0-50.0) % Pope % (Auto) (2.0-14.0) % Eos % (Auto) (0.0-5.0) % Baso % (Auto) (0.0-2.0) % Neut # (Auto) (1.40-7.00) K/uL Lymph # (Auto) (0.50-3.50) K/uL Pope # (Auto) (0.00-1.00) K/uL Eos # (Auto) (0.00-0.50) K/uL Baso # (Auto) (0.00-0.20) K/uL D-Dimer, Quantitative (0-400) ng/mL Sodium 141 (136-145) mmol/L Potassium 3.5 (3.5-5.1) mmol/L Chloride 108 H (98-107) mmol/L Carbon Dioxide 19.5 L (21.0-32.0) mmol/L BUN 30 H (7-18) mg/dL Creatinine 1.35 H (0.51-1.17) mg/dL Est Cr Clr Drug Dosing TNP Estimated GFR (MDRD) 50 mL/min Glucose 118 H (74-106) mg/dL Lactic Acid 1.8 (0.4-2.0) mmol/L Calcium 7.6 L (8.5-10.1) mg/dL Magnesium 1.9 (1.8-2.4) mg/dL Total Bilirubin 0.4 (0.2-1.0) mg/dL AST 34 (15-37) U/L ALT 12 (12-78) U/L Alkaline Phosphatase 78 (46-116) IU/L Troponin I 0.047 (0.000-0.056) ng/mL NT-Pro-B Natriuret Pep 1717 H (0-125) pg/mL Total Protein 6.1 L (6.4-8.2) g/dL Albumin 2.3 L (3.4-5.0) g/dL Specimen Type Urine Color Urine Appearance Urine pH (5.0-9.0) Ur Specific [place] (1.005-1.030) Urine Protein (NEGATIVE) mg/dL Urine Glucose (UA) (NEGATIVE) mg/dL Urine Ketones (NEGATIVE) mg/dL Urine Occult Blood (NEGATIVE) Urine Nitrite (NEGATIVE) Urine Bilirubin (NEGATIVE) Urine Urobilinogen (0.2-1.0) E.U./dL Ur Leukocyte Esterase (NEGATIVE) U Hyaline Cast (Auto) Urine RBC /HPF Urine WBC /HPF Ur Epithelial Cells /LPF Granular Casts (Auto) Meds: Medications Generic Name Dose Route Start Last Admin Trade Name Freq PRN Reason Stop Dose Admin Albuterol/Ipratropium 1 gm 07/29/20 20:00 Combivent Respimat INH QID MARTELL Sodium Chloride 1,000 mls @ 75 mls/hr 07/29/20 16:22 Normal Saline IV 07/30/20 05:41 .BOLUS ONE Sodium Chloride 250 mls @ 500 mls/hr 07/29/20 16:30 07/29/20 17:00 Normal Saline IV 500 mls/hr ASDIRECTED MARTELL Administration Ceftriaxone Sodium 1 gm/ 100 mls @ 200 mls/hr 07/29/20 16:30 07/29/20 18:00 Sodium Chloride IV 200 mls/hr Q24H MARTELL Administration Azithromycin 500 mg/ Sodium 250 mls @ 250 mls/hr 07/29/20 16:30 Chloride IV Q24H MARTELL Oseltamivir Phosphate 75 mg 07/29/20 16:30 07/29/20 17:56 Tamiflu PO 75 mg DAILY MARTELL Administration Sodium Chloride 10 ml 07/29/20 14:04 Saline Flush FLUSH ASDIRECTED PRN Keep Vein Open Discontinued Medications Generic Name Dose Route Start Last Admin Trade Name Freq PRN Reason Stop Dose Admin Iopamidol 100 ml 07/29/20 17:11 07/29/20 17:54 Isovue-370 (76%) IVPUSH 07/29/20 17:12 100 ml ONETIME STA Administration Iopamidol Confirm 07/29/20 17:43 Isovue-370 (76%) Administered 07/29/20 17:44 Dose 100 ml .[facility] .[facility]ENTERData[facility] Corp[facility] - Radiology Interpretation Free Text/Narrative:: Chest xray shows same changes noted on xray in May. Suspect due to bria ent's chronic pulmonary fibrosis. Radiology in May mentioned pneumonitis. Overall improved when compared to previous May films. - Re-Assessments/Exams Free Text/Narrative Re-Assessment/Exam: 07/29/20 18:19 Patient + for Influenza B Covid test pending Normal lactic Elevated DDimer/CT chest performed, waiting for formal Radiology results. Elevated ProBNP Mild elevation creatinine Admit for further treatment of weakness/tachypnea. Departure - Departure Time of Disposition: 18:23 Disposition: Admitted As Inpatient 68 Condition: Fair Clinical Impression: Influenza B - Discharge Information *PRESCRIPTION DRUG MONITORING PROGRAM REVIEWED*: Not Applicable *COPY OF PRESCRIPTION DRUG MONITORING REPORT IN PATIENT JORDYN: Not Applicable Sepsis Event Note (ED) - Evaluation Sepsis Screening Result: Possible Sepsis Risk - Focused Exam Vital Signs: Vital Signs Temp Pulse Resp BP Pulse Ox 07/29/20 14:00 36.5 C 109 H 24 H 101/52 L 92 L - Problem List & Annotations (1) Influenza B SNOMED Code(s): 36367599 Code(s): J10.1 - FLU DUE TO OTH IDENT INFLUENZA VIRUS W OTH RESP MANIFEST Status: Acute Priority: High Current Visit: Yes Onset Date: ~07/29/20 Annotation/Comment:: Influenza +. Pending Covid test. Will place on supplemental oxygen. Tamiflu given. Will cover with Rocephin/Zithromax for potential bacterial involvement. (2) Pulmonary fibrosis SNOMED Code(s): 98966640 Code(s): J84.10 - PULMONARY FIBROSIS, UNSPECIFIED Status: Chronic Priority: Medium Current Visit: Yes Annotation/Comment:: Stable per history (3) Hyperlipidemia SNOMED Code(s): 51685758 Code(s): E78.5 - HYPERLIPIDEMIA, UNSPECIFIED Status: Chronic Priority: Low Current Visit: No Annotation/Comment:: Not currently under therapy Qualifiers: Hyperlipidemia type: unspecified Qualified Code(s): E78.5 - Hyperlipidemia, unspecified (4) Sleep apnea SNOMED Code(s): 15098264 Code(s): G47.30 - SLEEP APNEA, UNSPECIFIED Status: Acute Priority: Low Current Visit: Yes Qualifiers: Sleep apnea type: unspecified type Qualified Code(s): G47.30 - Sleep apnea, unspecified (5) Osteoarthritis SNOMED Code(s): 658598759 Code(s): M19.90 - UNSPECIFIED OSTEOARTHRITIS, UNSPECIFIED SITE Status: Chronic Priority: Low Current Visit: No Annotation/Comment:: Chronic joint/back pain Qualifiers: Osteoarthritis location: unspecified site (6) Peptic reflux disease SNOMED Code(s): 645168103 Code(s): K21.9 - GASTRO-ESOPHAGEAL REFLUX DISEASE WITHOUT ESOPHAGITIS Status: Chronic Priority: Medium Current Visit: No Annotation/Comment:: Stable by history despite significant aspirin use (7) Hypertension SNOMED Code(s): 01283253 Code(s): I10 - ESSENTIAL (PRIMARY) HYPERTENSION Status: Chronic Priority: Medium Current Visit: No Annotation/Comment:: Observe trends Qualifiers: Hypertension type: essential hypertension Qualified Code(s): I10 - Essential (primary) hypertension (8) COPD (chronic obstructive pulmonary disease) SNOMED Code(s): 91569762 Code(s): J44.9 - CHRONIC OBSTRUCTIVE PULMONARY DISEASE, UNSPECIFIED Status: Chronic Priority: Medium Current Visit: No Annotation/Comment:: History of sleep apnea. No recent fever or bronchitic type symptoms. Does feel more SOB/+ for Influenza B Qualifiers: COPD type: emphysema Emphysema type: panlobular Qualified Code(s): J43.1 - Panlobular emphysema (9) Coronary artery disease SNOMED Code(s): 42121208 Code(s): I25.10 - ATHSCL HEART DISEASE OF [place] CORONARY ARTERY W/O ANG PCTRS Status: Chronic Priority: Low Current Visit: No Annotation/Comment:: Hx bypass/stents/arrhythmias/PVD Qualifiers: Coronary Disease-Associated Artery/Lesion type: bypass graft [place] vs. transplanted heart: [place] heart Associated angina: without angina Qualified Code(s): I25.810 - Atherosclerosis of coronary artery bypass graft(s) without angina pectoris - Problem List Review Problem List Initiated/Reviewed/Updated: Yes - My Orders Last 24 Hours: My Active Orders 07/29/20 14:04 CORONAVIRUS COVID-19 MATIAS [MOLEC] Routine Sodium Chloride 0.9% [Saline Flush] 10 ml FLUSH ASDIRECTED PRN Blood Culture x2 Reflex Set [OM.PC] Stat Saline Lock Insert [OM.PC] Routine 07/29/20 14:05 Chest 1V Frontal [CR] Stat 07/29/20 14:10 CULTURE BLOOD [BC] Stat 07/29/20 14:20 CULTURE BLOOD [BC] Stat 07/29/20 14:50 Isolation [COMM] Routine 07/29/20 16:20 PE Chest [Ang Chest] [CT] Stat 07/29/20 16:22 Sodium Chloride 0.9% [Normal Saline] 1,000 ml IV .BOLUS 07/29/20 16:28 RT Post Treatment Assessment [RC] Click to Edit RT Pre-Treatment Assessment [RC] Click to Edit 07/29/20 16:30 Azithromycin [Zithromax] 500 mg Sodium Chloride 0.9% [Normal Saline] 250 ml IV Q24H Oseltamivir [Tamiflu] 75 mg PO DAILY Sodium Chloride 0.9% [Normal Saline] 250 ml IV ASDIRECTED cefTRIAXone [Rocephin] 1 gm Sodium Chloride 0.9% [Normal Saline] 100 ml IV Q24H 07/29/20 20:00 Albuterol/Ipratropium [Combivent Respimat] 1 gm INH QID - Assessment/Plan Admission H&P: Please use this note as an admission H&P Last 24 Hours: My Active Orders 07/29/20 14:04 CORONAVIRUS COVID-19 MATIAS [MOLEC] Routine Sodium Chloride 0.9% [Saline Flush] 10 ml FLUSH ASDIRECTED PRN Blood Culture x2 Reflex Set [OM.PC] Stat Saline Lock Insert [OM.PC] Routine 07/29/20 14:05 Chest 1V Frontal [CR] Stat 07/29/20 14:10 CULTURE BLOOD [BC] Stat 07/29/20 14:20 CULTURE BLOOD [BC] Stat 07/29/20 14:50 Isolation [COMM] Routine 07/29/20 16:20 PE Chest [Ang Chest] [CT] Stat 07/29/20 16:22 Sodium Chloride 0.9% [Normal Saline] 1,000 ml IV .BOLUS 07/29/20 16:28 RT Post Treatment Assessment [RC] Click to Edit RT Pre-Treatment Assessment [RC] Click to Edit 07/29/20 16:30 Azithromycin [Zithromax] 500 mg Sodium Chloride 0.9% [Normal Saline] 250 ml IV Q24H Oseltamivir [Tamiflu] 75 mg PO DAILY Sodium Chloride 0.9% [Normal Saline] 250 ml IV ASDIRECTED cefTRIAXone [Rocephin] 1 gm Sodium Chloride 0.9% [Normal Saline] 100 ml IV Q24H 07/29/20 20:00 Albuterol/Ipratropium [Combivent Respimat] 1 gm INH QID Assessment:: as above Plan: as above. Admit and treat for weakness/respiratory changes associated with acute Influenza B infection. Anticipate 4 day stay given patient's age and multiple co-morbidities.
[2020-07-29] MEDS ORDERED: Sodium Chloride 0.9% 1,000 ML IV ONE (16:22)
[2020-07-29] MEDS ORDERED: Azithromycin 500 MG in Sodium Chloride 0.9% 250 ML IV SCH (16:30)
[2020-07-29] MEDS ORDERED: Sodium Chloride 0.9% 250 ML IV SCH (16:30)
[2020-07-29] MEDS ORDERED: cefTRIAXone 1 GM in Sodium Chloride 0.9% 100 ML IV SCH (16:30)
[2020-07-29] MEDS ORDERED: Iopamidol 755 Mg/ML 100 ML Bottle IVPUSH STA (17:11)
[2020-07-29] MEDS ORDERED: Iopamidol 755 Mg/ML 100 ML Bottle ONE (17:43)
[2020-07-29] MEDS: Oseltamivir 75 MG Cap PO SCH (17:56)
[2020-07-29] MEDS ORDERED: Docusate Sodium 100 MG Cap PO PRN (18:48)
[2020-07-29] MEDS ORDERED: Albuterol 8 GM Inhaler INH PRN (18:52)
[2020-07-29] MEDS ORDERED: LORazepam 2 MG/ML SDV IVPUSH PRN (18:52)
[2020-07-29] MEDS ORDERED: Morphine 2 MG/ML SYRINGE IVPUSH PRN (18:54)
[2020-07-29] MEDS ORDERED: Enoxaparin 30 MG/0.3 ML Syringe SUBCUT SCH (19:00)
[2020-07-29] MEDS ORDERED: Aspirin 325 MG Tab PO PRN (19:47)
[2020-07-29] MEDS ORDERED: Acetaminophen 325 MG Tab PO PRN (21:01)
[2020-07-29] MEDS ORDERED: Acetaminophen 325 MG Tab ONE (21:04)
[2020-07-29] MEDS: Albuterol/Ipratropium 4 GM Inhalation Spray INH SCH (21:09)
[2020-07-29] MEDS: Gabapentin 300 MG Cap PO SCH (21:12)
[2020-07-30] MEDS ORDERED: Morphine 2 MG/ML SYRINGE IM ONE (07:57)
[2020-07-30 08:00] VITALS: BP 107/59; PULSE 105
[2020-07-30] MEDS ORDERED: Enoxaparin 40 MG/0.4 ML Syringe SUBCUT SCH (08:00)
[2020-07-30] MEDS ORDERED: Omeprazole 20 MG Cap.CR PO SCH (08:00)
[2020-07-30] MEDS: Atropine 1% Ophth Soln 5 ML BOTTLE SL PRN ×3 (10:17→20:59)
[2020-07-30] MEDS: LORazepam Conc Solution 2 MG/ML 30 ML Bottle PO PRN ×4 (10:18→21:01)
[2020-07-30] MEDS: Oseltamivir 75 MG Cap PO SCH (10:23)
[2020-07-30] MEDS: Gabapentin 300 MG Cap PO SCH ×3 (10:23→20:37)
[2020-07-30] MEDS: Albuterol/Ipratropium 4 GM Inhalation Spray INH SCH ×4 (10:23→20:37)
[2020-07-30] MEDS: Morphine Oral Concentrate 20 MG/ML 30 ML Bottle SL PRN ×3 (12:17→20:59)
[2020-07-30] MEDS ORDERED: Albuterol 6.7 GM Inhaler INH PRN (14:15)
--- NOTE | 2020-07-30 18:21 | PCM.PN ---
- General Info Date of Service: 07/30/20 Admission Dx/Problem (Free Text): Influenza B Subjective Update: Patient unresponsive at this time Functional Status: Reports: Other (unresponsive) - Patient Data Vitals - Most Recent: Last Vital Signs Temp 36.3 C 07/30/20 07:59 Pulse 105 H 07/30/20 07:59 Resp 24 H 07/30/20 07:59 BP 107/59 L 07/30/20 07:59 Pulse Ox 90 L 07/30/20 07:59 Weight - Most Recent: 69.4 kg I&O - Last 24 Hours: Intake & Output 07/30/20 07/30/20 07/30/20 06:59 14:59 22:59 Intake Total 910 Balance 910 Lab Results Last 24 Hours: Laboratory Results - last 24 hr 07/29/20 Range/Units 14:04 SARS-CoV-2 RNA (MATIAS) Negative (NEGATIVE) Patrick Results Last 24 Hours: Microbiology 07/29/20 14:10 Aerobic Blood Culture - Preliminary Blood - Venous NO GROWTH AFTER 1 DAY Anaerobic Blood Culture - Preliminary NO GROWTH AFTER 1 DAY 07/29/20 14:20 Aerobic Blood Culture - Preliminary Blood - Venous - Lab Draw NO GROWTH AFTER 1 DAY Anaerobic Blood Culture - Preliminary NO GROWTH AFTER 1 DAY 07/29/20 15:20 Influenza Type A Antigen Screen - Final Nasal Aspirate, Unspecified NEGATIVE INFLUENZA A VIRUS AG REFERENCE RANGE: NEGATIVE Influenza Type B Antigen Screen - Final Positive Influenza B Ag Med Orders - Current: Current Medications Acetaminophen (Tylenol) 650 mg PO Q4H PRN PRN Reason: Fever Last Admin: 07/29/20 21:26 Dose: 650 mg Documented by: Albuterol (Proventil Hfa) 0 gm INH Q2H PRN PRN Reason: Shortness of Breath Albuterol/Ipratropium (Combivent Respimat) 1 gm INH QID MARTELL Last Admin: 07/30/20 15:56 Dose: Not Given Documented by: Aspirin (Aspirin) 650 mg PO Q4H PRN PRN Reason: Pain Atropine Sulfate (Atropine 1% Ophth Soln) 1 ml SL Q2H PRN PRN Reason: secretions Last Admin: 07/30/20 15:55 Dose: 1 ml Documented by: Docusate Sodium (Colace) 100 mg PO TID PRN PRN Reason: Constipation Enoxaparin Sodium (Lovenox) 40 mg SUBCUT DAILY [facility] Last Admin: 07/30/20 07:46 Dose: 40 mg Documented by: Gabapentin (Neurontin) 300 mg PO TID@, [facility] Last Admin: 07/30/20 15:56 Dose: Not Given Documented by: Lorazepam (Ativan) 1 mg PO Q2H PRN PRN Reason: anxiety/ease of breathing Last Admin: 07/30/20 16:54 Dose: 1 mg Documented by: Morphine Sulfate (Morphine 20 Mg/Ml Soln) 2 mg SL Q2H PRN PRN Reason: pain/ease of breathing Last Admin: 07/30/20 15:55 Dose: 0.1 ml Documented by: Omeprazole (Omeprazole) 20 mg PO QAM [facility] Last Admin: 07/30/20 10:23 Dose: Not Given Documented by: Oseltamivir Phosphate (Tamiflu) 75 mg PO DAILY [facility] Stop: 08/02/20 08:01 Last Admin: 07/30/20 10:23 Dose: Not Given Documented by: Discontinued Medications Acetaminophen (Tylenol) Confirm Administered Dose 650 mg .ROUTE .STK-MED ONE Stop: 07/29/20 21:05 Last Admin: 07/29/20 21:43 Dose: Not Given Documented by: Albuterol (Ventolin Hfa) 0 gm INH Q2H PRN PRN Reason: Shortness of Breath Last Admin: 07/30/20 00:02 Dose: 1 inhalation Documented by: Enoxaparin Sodium (Lovenox) 30 mg SUBCUT DAILY [facility] Last Admin: 07/29/20 21:19 Dose: Not Given Documented by: Sodium Chloride (Normal Saline) 1,000 mls @ 75 mls/hr IV .BOLUS ONE Stop: 07/30/20 05:41 Last Admin: 07/29/20 20:42 Dose: 75 mls/hr Documented by: Sodium Chloride (Normal Saline) 250 mls @ 500 mls/hr IV ASDIRECTED [facility] Last Admin: 07/29/20 17:00 Dose: 500 mls/hr Documented by: Ceftriaxone Sodium 1 gm/ (Sodium Chloride) 100 mls @ 200 mls/hr IV Q24H [facility] Last Admin: 07/29/20 18:00 Dose: 200 mls/hr Documented by: Azithromycin 500 mg/ Sodium (Chloride) 250 mls @ 250 mls/hr IV Q24H [facility] Last Admin: 07/29/20 18:46 Dose: 250 mls/hr Documented by: Iopamidol ([id number] (76%)) 100 ml IVPUSH ONETIME STA Stop: 07/29/20 17:12 Last Admin: 07/29/20 17:54 Dose: 100 ml Documented by: Iopamidol (Isovue-370 (76%)) Confirm Administered Dose 100 ml .ROUTE .STK-MED ONE Stop: 07/29/20 17:44 Last Admin: 07/29/20 18:48 Dose: Not Given Documented by: Lorazepam (Ativan) 1 mg IVPUSH Q6H PRN PRN Reason: Anxiety Last Admin: 07/29/20 21:24 Dose: 1 mg Documented by: Morphine Sulfate (Morphine) 2 mg IVPUSH Q2H PRN PRN Reason: Anxiety Last Admin: 07/30/20 00:03 Dose: 2 mg Documented by: Morphine Sulfate (Morphine) 2 mg IM ONETIME ONE Stop: 07/30/20 07:58 Last Admin: 07/30/20 07:57 Dose: 2 mg Documented by: Sodium Chloride (Saline Flush) 10 ml FLUSH ASDIRECTED PRN PRN Reason: Keep Vein Open - Exam Quality Assessment: Supplemental Oxygen, DVT Prophylaxis General: Obtunded HEENT: Pupils Reactive Neck: Supple Lungs: Rhonchi (bilaterally). No: Wheezing Cardiovascular: Regular Rhythm GI/Abdominal Exam: Soft (Male) Exam: Deferred Back Exam: Other (two small dime sized shallow errosions on buttocks, one on each side. No drainage. ) Extremities: Normal Capillary Refill. No: Increased Warmth, Mottled, Pallor, Redness Skin: Warm, Dry Sepsis Event Note - Evaluation Sepsis Screening Result: Severe Sepsis Risk - Focused Exam Vital Signs: Vital Signs Temp Pulse Resp BP Pulse Ox 07/30/20 07:59 36.3 C 105 H 24 H 107/59 L 90 L - Problem List & Annotations (1) Influenza B SNOMED Code(s): 09984946 Code(s): J10.1 - FLU DUE TO OTH IDENT INFLUENZA VIRUS W OTH RESP MANIFEST Status: Acute Priority: High Current Visit: Yes Onset Date: ~07/29/20 Annotation/Comment:: Influenza B. Negative Covid test. Placed on supplemental oxygen. Tamiflu given. Rocephin/Zithromax for potential bacterial involvement. (2) Need for comfort care SNOMED Code(s): 560275651, 157880252 Code(s): WHA2928 - Status: Acute Priority: High Current Visit: Yes Annotation/Comment:: Patient made it clear that he wanted comfort care/no extraordinary measures performed when admitted. Stated he was "ready to " and his "family won't let him". Agreeable with antibiotics/antiviral and O2. (3) Pulmonary fibrosis SNOMED Code(s): 29646701 Code(s): J84.10 - PULMONARY FIBROSIS, UNSPECIFIED Status: Chronic Priority: Medium Current Visit: Yes Annotation/Comment:: Stable per history (4) Hyperlipidemia SNOMED Code(s): 36679038 Code(s): E78.5 - HYPERLIPIDEMIA, UNSPECIFIED Status: Chronic Priority: Low Current Visit: No Qualifiers: Hyperlipidemia type: unspecified Qualified Code(s): E78.5 - Hyperlipidemia, unspecified Annotation/Comment:: Not currently under therapy (5) Sleep apnea SNOMED Code(s): 60073973 Code(s): G47.30 - SLEEP APNEA, UNSPECIFIED Status: Acute Priority: Low Current Visit: Yes Qualifiers: Sleep apnea type: unspecified type Qualified Code(s): G47.30 - Sleep apnea, unspecified (6) Osteoarthritis SNOMED Code(s): 518031693 Code(s): M19.90 - UNSPECIFIED OSTEOARTHRITIS, UNSPECIFIED SITE Status: Chronic Priority: Low Current Visit: No Qualifiers: Osteoarthritis location: unspecified site Annotation/Comment:: Chronic joint/back pain (7) Peptic reflux disease SNOMED Code(s): 164216295 Code(s): K21.9 - GASTRO-ESOPHAGEAL REFLUX DISEASE WITHOUT ESOPHAGITIS Status: Chronic Priority: Medium Current Visit: No Annotation/Comment:: Stable by history despite significant aspirin use (8) Hypertension SNOMED Code(s): 70057944 Code(s): I10 - ESSENTIAL (PRIMARY) HYPERTENSION Status: Chronic Priority: Medium Current Visit: No Qualifiers: Hypertension type: essential hypertension Qualified Code(s): I10 - Essential (primary) hypertension Annotation/Comment:: Observe trends (9) COPD (chronic obstructive pulmonary disease) SNOMED Code(s): 26174244 Code(s): J44.9 - CHRONIC OBSTRUCTIVE PULMONARY DISEASE, UNSPECIFIED Status: Chronic Priority: Medium Current Visit: Yes Qualifiers: COPD type: emphysema Emphysema type: panlobular Qualified Code(s): J43.1 - Panlobular emphysema Annotation/Comment:: History of sleep apnea. No recent fever or bronchitic type symptoms. Does feel more SOB/+ for Influenza B (10) Coronary artery disease SNOMED Code(s): 85926118 Code(s): I25.10 - ATHSCL HEART DISEASE OF [place] CORONARY ARTERY W/O ANG PCTRS Status: Chronic Priority: Low Current Visit: No Qualifiers: Coronary Disease-Associated Artery/Lesion type: bypass graft [place] vs. 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 Has small spots of errosion that correlate with back buttons of the jeans he wears. No signs of infection. - Problem List Review Problem List Initiated/Reviewed/Updated: Yes - My Orders Last 24 Hours: My Active Orders 07/29/20 18:45 Patient Status [ADT] Routine May Shower [RC] ASDIRECTED Oxygen Therapy [RC] 2300 Up With Assistance [RC] DAILY Vital Signs [RC] Q4HR OT Evaluation and Treatment [CONS] Routine PT Evaluation and Treatment [CONS] Routine Resuscitation Status Routine 07/29/20 18:46 Intake and Output [RC] QSHIFT 07/29/20 18:47 Pulse Oximetry [RC] .PRN 07/29/20 18:48 Docusate Sodium [Colace] 100 mg PO TID PRN 07/29/20 18:52 RT Post Treatment Assessment [RC] Click to Edit RT Pre-Treatment Assessment [RC] Click to Edit 07/29/20 19:47 Aspirin 650 mg PO Q4H PRN 07/29/20 20:00 Albuterol/Ipratropium [Combivent Respimat] 1 gm INH QID Gabapentin [Neurontin] 300 mg PO TID@09,,07/29/20 21:01 Acetaminophen [TylenoL] 650 mg PO Q4H PRN 07/30/20 Breakfast Heart Healthy Diet [DIET] 07/30/20 07:44 Urinary Catheter Assessment [RC] ASDIRECTED 07/30/20 07:45 Insert Hendricks Catheter [Insert Urinary Catheter] [OM.PC] Q24H 07/30/20 08:00 Enoxaparin [Lovenox] 40 mg SUBCUT DAILY Omeprazole 20 mg PO QAM 07/30/20 10:00 Atropine 1% [Atropine 1% Ophth Soln] 1 ml SL Q2H PRN LORazepam [Ativan] 1 mg PO Q2H PRN Morphine [Morphine 20 MG/ML Soln] 2 mg SL Q2H PRN 07/30/20 11:31 Comfort Measures [OM.PC] Routine 07/30/20 14:15 Albuterol [Proventil HFA] 0 gm INH Q2H PRN 07/31/20 05:11 COMPREHENSIVE METABOLIC PN,CMP [CHEM] AM 07/31/20 05:15 CBC WITH AUTO DIFF [HEME] AM - Assessment Assessment:: as above. Blood cultures negative at this time. [place] virus negative. Patient developed more agitation overnight. Increased respiration rate/respiratory compromise noted. Patient has history of COPD as well as pulmonary fibrosis in addition to acute Influenza B infection. He later became obtunded and at this time is responsive only to pain. IV site lost. Given patient's insistence on comfort care during ER visit/admission and course of illness it was decided to discontinue attempts at re-establishing an IV after multiple attempts failed. Care is now focused on end of life/comfort care. Family kept informed of changes. Extremely poor prognosis at this time. - Plan Plan:: as above. to assume care in AM.
[2020-07-31] MEDS: Morphine Oral Concentrate 20 MG/ML 30 ML Bottle SL PRN ×3 (00:53→06:05)
[2020-07-31] MEDS: LORazepam Conc Solution 2 MG/ML 30 ML Bottle PO PRN ×2 (00:54→06:07)
[2020-07-31] MEDS: Atropine 1% Ophth Soln 5 ML BOTTLE SL PRN ×2 (03:50→06:10)
--- NOTE | 2020-07-31 15:32 | PCM.DCSUM1 ---
Discharge Summary - Hospital Course HPI Initial Comments: See emergency room note/admission H&P Brief History: See emergency room note/mention H&P Diagnosis: Stroke: No Modified [place] Scale: No Symptoms at All Modified [place] Scale Score: 0 - Discharge Data Discharge Date: 07/31/20 Discharge Disposition: 20 Condition: - Referral to [facility] Primary Care Physician: SOPHIA Bedolla - Discharge Diagnosis/Problem(s) (1) Pneumonia SNOMED Code(s): 415134642 ICD Code: J18.9 - PNEUMONIA, UNSPECIFIED ORGANISM Status: Acute Priority: High Problem Details: Influenza B infection with concomitant probable bilateral pneumonia. IV Zithromax and IV Rocephin therapy were initiated on patient's admission. Note additional oral Tamiflu secondary to his influenza B infection. Aggressive Combivent and Proventil inhaler therapy was also initiated on admission with patient failing to respond to the above therapy. He was pronounced at 8:45 AM this morning. Emotional support was provided to the patient's family. Final blood culture results x2 are pending. Sputum could not be obtained. Lactic acid level was normal. Qualifiers: Pneumonia type: due to unspecified organism Laterality: bilateral Lung location: unspecified part of lung Qualified Code(s): J18.9 - Pneumonia, unspecified organism (2) Influenza B SNOMED Code(s): 76026490 ICD Code: J10.1 - FLU DUE TO OTH IDENT INFLUENZA VIRUS W OTH RESP MANIFEST Status: Acute Priority: High Onset Date: ~07/29/20 Problem Details: Influenza B with secondary probable bacterial pneumonia unresponsive to medical therapy as above. Note negative Covid test. Placed was on supplemental oxygen. (3) Need for comfort care SNOMED Code(s): 410141817, 697548896 ICD Code: [id number] - Status: Acute Priority: High Problem Details: Patient made it clear that he wanted comfort care/no extraordinary measures performed when admitted. Stated he was "ready to " and his "family won't let him". Agreeable with antibiotics/antiviral and O2. (4) Atrial fibrillation SNOMED Code(s): 56376242 ICD Code: I48.91 - UNSPECIFIED ATRIAL FIBRILLATION Status: Chronic Priority: Medium Problem Details: Previous history atrial fibrillation with Coumadin therapy, however the patient denies this at this time. Note PVCs versus PACs with aberrant conduction in the past. No history of chest pain or anginal type symptoms. Qualifiers: Atrial fibrillation type: paroxysmal Qualified Code(s): I48.0 - Paroxysmal atrial fibrillation (5) COPD (chronic obstructive pulmonary disease) SNOMED Code(s): 34292337 ICD Code: J44.9 - CHRONIC OBSTRUCTIVE PULMONARY DISEASE, UNSPECIFIED Status: Chronic Priority: High Problem Details: History of sleep apnea. Note COPD exacerbation from his current pneumonia and influenza B as above. Qualifiers: COPD type: emphysema Emphysema type: panlobular Qualified Code(s): J43.1 - Panlobular emphysema (6) Coronary artery disease SNOMED Code(s): 67522759 ICD Code: I25.10 - ATHSCL HEART DISEASE OF [place] CORONARY ARTERY W/O ANG PCTRS Status: Chronic Priority: High Problem Details: Hx bypass/stents/arrhythmias/PVD Qualifiers: Coronary Disease-Associated Artery/Lesion type: bypass graft [place] vs. transplanted heart: [place] heart Associated angina: without angina Qualified Code(s): I25.810 - Atherosclerosis of coronary artery bypass graft(s) without angina pectoris (7) Hypertension SNOMED Code(s): 29139385 ICD Code: I10 - ESSENTIAL (PRIMARY) HYPERTENSION Status: Chronic Pr iority: Medium Problem Details: Observe closely during his hospitalization. Qualifiers: Hypertension type: essential hypertension Qualified Code(s): I10 - Essential (primary) hypertension (8) Hypoalbuminemia SNOMED Code(s): 293481557 ICD Code: E88.09 - OTH DISORDERS OF PLASMA-PROTEIN METABOLISM, NEC Status: Acute Priority: Medium Onset Date: 07/29/20 Problem Details: Observe during hospitalization. (9) Renal insufficiency SNOMED Code(s): 315481562, 597153414 ICD Code: N28.9 - DISORDER OF KIDNEY AND URETER, UNSPECIFIED Status: Chronic Priority: Medium Problem Details: Stable per medical records. (10) Anemia SNOMED Code(s): 704452261 ICD Code: D64.9 - ANEMIA, UNSPECIFIED Status: Chronic Priority: Medium Problem Details: No evidence of acute GI bleed. Qualifiers: Anemia type: unspecified type Qualified Code(s): D64.9 - Anemia, unspecified (11) D-dimer, elevated SNOMED Code(s): 167273721 ICD Code: R79.89 - OTHER SPECIFIED ABNORMAL FINDINGS OF BLOOD CHEMISTRY Status: Acute Priority: High Onset Date: 07/29/20 Problem Details: Subcu Lovenox initiated on admission. Note negative CTA of the chest as above. - Patient Summary/Data Operative Procedure(s) Performed: None Complications: Patient's Labs Pending at D/C: Final blood culture results x2 Recommended Follow-up Testing/Procedures: None Planned Operative Procedure(s) after DC: None Hospital Course: Patient was admitted to inpatient and acute care with aggressive treatment of his influenza B, pneumonia, and COPD exacerbation as above. Despite the above attempts patient eventually on 07/31/2020. - Discharge Plan *PRESCRIPTION DRUG MONITORING PROGRAM REVIEWED*: Not Applicable *COPY OF PRESCRIPTION DRUG MONITORING REPORT IN PATIENT JORDYN: Not Applicable Home Medications: Home Meds Aspirin 325 mg PO ASDIRECTED PRN 12/19/17 [History] Docusate Sodium [Colace] 100 mg PO TID PRN 12/19/17 [History] Omeprazole 20 mg PO QAM 12/19/17 [History] Gabapentin [Neurontin] 300 mg PO TID@,,07/13/20 [History] Albuterol/Ipratropium [DuoNeb 3.0-0.5 MG/3 ML] 3 ml IN Q4HR PRN 07/29/20 [History] Budesonide [Pulmicort] 2 ml IN BID@07/29/20 [History] Forms: ED Department Discharge Referrals: Nessa Cueva PA [Primary Care Provider] - - Discharge Summary/Plan Comment DC Time >30 min.: Yes Discharge Summary/Plan Comment: As above. Emotional support provided to the family. - General Info Admission Dx/Problem (Free Text: Influenza B Functional Status: Reports: Pain Controlled. Denies: Tolerating Diet Numeric/FACES Score: 0 - Review of Systems General: Reports: Fever, Weakness, Night Sweats HEENT: Reports: Sinus Congestion Pulmonary: Reports: Shortness of Breath Cardiovascular: Reports: Dyspnea on Exertion. Denies: Chest Pain Gastrointestinal: Reports: No Symptoms Genitourinary: Reports: No Symptoms Musculoskeletal: Reports: No Symptoms Skin: Reports: No Symptoms Neurological: Reports: Other (Nonresponsive) Psychiatric: Reports: No Symptoms - Patient Data Vitals - Most Recent: Last Vital Signs Temp 37.7 C 07/30/20 20:00 Pulse 105 H 07/30/20 07:59 Resp 32 H 07/30/20 20:00 BP 107/59 L 07/30/20 07:59 Pulse Ox 90 L 07/30/20 07:59 Vital Signs (72 hours) 07/29/20 07/29/20 07/29/20 14:00 16:40 20:00 Temperature [ 36.5 C 37.6 C 37.7 C Temporal] Pulse, 109 H 101 H 104 H Peripheral [ Pulse Oximetry] Respiratory 24 H 28 H 32 H Rate Blood Pressure 101/52 L 104/48 L 103/50 L [Right Upper Arm] O2 Sat by Pulse 92 L 93 L 89 L Oximetry O2 Sat by Pulse Oximetry [ Nasal Cannula] 07/29/20 07/29/20 07/30/20 20:05 23:42 01:17 Temperature [ 36.8 C Temporal] Pulse, 90 Peripheral [ Pulse Oximetry] Respiratory 28 H Rate Blood Pressure 110/57 L [Right Upper Arm] O2 Sat by Pulse 89 L 89 L Oximetry O2 Sat by Pulse 89 L 88 L Oximetry [ Nasal Cannula] 07/30/20 07/30/20 07/30/20 01:30 04:00 07:59 Temperature [ 36.9 C 36.3 C Temporal] Pulse, 92 105 H Peripheral [ Pulse Oximetry] Respiratory 24 H 24 H Rate Blood Pressure 108/52 L 107/59 L [Right Upper Arm] O2 Sat by Pulse 92 L 90 L Oximetry O2 Sat by Pulse 91 L Oximetry [ Nasal Cannula] 07/30/20 20:00 Temperature [ 37.7 C Temporal] Pulse, Peripheral [ Pulse Oximetry] Respiratory 32 H Rate Blood Pressure [Right Upper Arm] O2 Sat by Pulse Oximetry O2 Sat by Pulse Oximetry [ Nasal Cannula] Weight - Most Recent: 69.4 kg I&O - Last 24 hours: Intake & Output 07/31/20 07/31/20 07/31/20 06:59 14:59 22:59 Output Total 150 Balance -150 Imaging Impressions - Last 24 hrs: Chest x-ray, portable, on 07/29/2020 did show evidence of bilateral infiltrates with status post medial sternotomy. CTA of the chest on 07/29/2020 was negative for PE with incidental findings of pneumonia, coronary artery disease, small hiatal hernia, and status post cholecystectomy. Suspicion of COVID-19, however negative COVID-19 test in this facility as above Lab Results - Last 24 hrs: Laboratory Tests 07/29/20 07/29/20 07/29/20 Range/Units 14:04 14:04 14:10 WBC 8.8 (4.0-10.2) K/uL RBC 3.79 L (4.33-5.41) M/uL Hgb 10.6 L D (13.1-16.8) g/dL Hct 32.5 L (39.0-49.0) % MCV 85.8 (84.0-98.0) fL MCH 28.0 L (28.2-33.3) pg MCHC 32.6 (31.7-36.0) g/dL RDW 15.9 H (11.2-14.1) % Plt Count 213 D (150-350) K/uL Neut % (Auto) 66.7 (45.0-80.0) % Lymph % (Auto) 22.7 (10.0-50.0) % [place] % (Auto) 8.5 (2.0-14.0) % Eos % (Auto) 0.6 (0.0-5.0) % Baso % (Auto) 1.5 (0.0-2.0) % Neut # (Auto) 5.86 (1.40-7.00) K/uL Lymph # (Auto) 1.99 (0.50-3.50) K/uL [place] # (Auto) 0.75 (0.00-1.00) K/uL Eos # (Auto) 0.05 (0.00-0.50) K/uL Baso # (Auto) 0.13 (0.00-0.20) K/uL D-Dimer, Quantitative (0-400) ng/mL Sodium (136-145) mmol/L Potassium (3.5-5.1) mmol/L Chloride (98-107) mmol/L Carbon Dioxide (21.0-32.0) mmol/L BUN (7-18) mg/dL Creatinine (0.51-1.17) mg/dL Est Cr Clr Drug Dosing Estimated GFR (MDRD) mL/min Glucose (74-106) mg/dL Lactic Acid (0.4-2.0) mmol/L Calcium (8.5-10.1) mg/dL Magnesium (1.8-2.4) mg/dL Total Bilirubin (0.2-1.0) mg/dL AST (15-37) U/L ALT (12-78) U/L Alkaline Phosphatase (46-116) IU/L Troponin I (0.000-0.056) ng/mL NT-Pro-B Natriuret Pep (0-125) pg/mL Total Protein (6.4-8.2) g/dL Albumin (3.4-5.0) g/dL Specimen Type [place] Urine Color Dark yellow Urine Appearance Slightly cloudy Urine pH 5.0 (5.0-9.0) Ur Specific [place] 1.025 (1.005-1.030) Urine Protein 30 H (NEGATIVE) mg/dL Urine Glucose (UA) Negative (NEGATIVE) mg/dL Urine Ketones 15 H (NEGATIVE) mg/dL Urine Occult Blood Negative (NEGATIVE) Urine Nitrite Negative (NEGATIVE) Urine Bilirubin Negative (NEGATIVE) Urine Urobilinogen 0.2 (0.2-1.0) E.U./dL Ur Leukocyte Esterase Negative (NEGATIVE) U Hyaline Cast (Auto) Rare Urine RBC Not seen /HPF Urine WBC Not seen /HPF Ur Epithelial Cells Rare /LPF Granular Casts (Auto) Rare SARS-CoV-2 RNA (MATIAS) Negative (NEGATIVE) 07/29/20 07/29/20 07/29/20 Range/Units 14:10 14:10 14:10 WBC (4.0-10.2) K/uL RBC (4.33-5.41) M/uL Hgb (13.1-16.8) g/dL Hct (39.0-49.0) % MCV (84.0-98.0) fL MCH (28.2-33.3) pg MCHC (31.7-36.0) g/dL RDW (11.2-14.1) % Plt Count (150-350) K/uL Neut % (Auto) (45.0-80.0) % Lymph % (Auto) (10.0-50.0) % [place] % (Auto) (2.0-14.0) % Eos % (Auto) (0.0-5.0) % Baso % (Auto) (0.0-2.0) % Neut # (Auto) (1.40-7.00) K/uL Lymph # (Auto) (0.50-3.50) K/uL [place] # (Auto) (0.00-1.00) K/uL Eos # (Auto) (0.00-0.50) K/uL Baso # (Auto) (0.00-0.20) K/uL D-Dimer, Quantitative 1420 H (0-400) ng/mL Sodium 141 (136-145) mmol/L Potassium 3.5 (3.5-5.1) mmol/L Chloride 108 H (98-107) mmol/L Carbon Dioxide 19.5 L (21.0-32.0) mmol/L BUN 30 H (7-18) mg/dL Creatinine 1.35 H (0.51-1.17) mg/dL Est Cr Clr Drug Dosing TNP Estimated GFR (MDRD) 50 mL/min Glucose 118 H (74-106) mg/dL Lactic Acid 1.8 (0.4-2.0) mmol/L Calcium 7.6 L (8.5-10.1) mg/dL Magnesium 1.9 (1.8-2.4) mg/dL Total Bilirubin 0.4 (0.2-1.0) mg/dL AST 34 (15-37) U/L ALT 12 (12-78) U/L Alkaline Phosphatase 78 (46-116) IU/L Troponin I 0.047 (0.000-0.056) ng/mL NT-Pro-B Natriuret Pep 1717 H (0-125) pg/mL Total Protein 6.1 L (6.4-8.2) g/dL Albumin 2.3 L (3.4-5.0) g/dL Specimen Type Urine Color Urine Appearance Urine pH (5.0-9.0) Ur Specific [place] (1.005-1.030) Urine Protein (NEGATIVE) mg/dL Urine Glucose (UA) (NEGATIVE) mg/dL Urine Ketones (NEGATIVE) mg/dL Urine Occult Blood (NEGATIVE) Urine Nitrite (NEGATIVE) Urine Bilirubin (NEGATIVE) Urine Urobilinogen (0.2-1.0) E.U./dL Ur Leukocyte Esterase (NEGATIVE) U Hyaline Cast (Auto) Urine RBC /HPF Urine WBC /HPF Ur Epithelial Cells /LPF Granular Casts (Auto) SARS-CoV-2 RNA (MATIAS) (NEGATIVE) [place] Results - Last 24 hrs: Microbiology 07/29/20 14:10 Aerobic Blood Culture - Preliminary Blood - Venous NO GROWTH AFTER 2 DAYS Anaerobic Blood Culture - Preliminary NO GROWTH AFTER 2 DAYS 07/29/20 14:20 Aerobic Blood Culture - Preliminary Blood - Venous - Lab Draw NO GROWTH AFTER 2 DAYS Anaerobic Blood Culture - Preliminary NO GROWTH AFTER 2 DAYS Microbiology 07/29/20 14:10 Blood - Venous Aerobic Blood Culture - Preliminary NO GROWTH AFTER 2 DAYS 07/29/20 14:10 Blood - Venous Anaerobic Blood Culture - Preliminary NO GROWTH AFTER 2 DAYS 07/29/20 14:20 Blood - Venous - Lab Draw Aerobic Blood Culture - Preliminary NO GROWTH AFTER 2 DAYS 07/29/20 14:20 Blood - Venous - Lab Draw Anaerobic Blood Culture - Preliminary NO GROWTH AFTER 2 DAYS 07/29/20 15:20 Nasal Aspirate, Unspecified Influenza Type A Antigen Screen - Final NEGATIVE INFLUENZA A VIRUS AG REFERENCE RANGE: NEGATIVE 07/29/20 15:20 Nasal Aspirate, Unspecified Influenza Type B Antigen Screen - Final Positive Influenza B Ag Med Orders - Current: Current Medications Discontinued Medications Acetaminophen (Tylenol) 650 mg PO Q4H PRN PRN Reason: Fever Last Admin: 07/29/20 21:26 Dose: 650 mg Documented by: Acetaminophen (Tylenol) Confirm Administered Dose 650 mg .ROUTE .STK-MED ONE Stop: 07/29/20 21:05 Last Admin: 07/29/20 21:43 Dose: Not Given Documented by: Albuterol (Ventolin Hfa) 0 gm INH Q2H PRN PRN Reason: Shortness of Breath Last Admin: 07/30/20 00:02 Dose: 1 inhalation Documented by: Albuterol (Proventil Hfa) 0 gm INH Q2H PRN PRN Reason: Shortness of Breath Albuterol/Ipratropium (Combivent Respimat) 1 gm INH QID MARTELL Last Admin: 07/30/20 20:37 Dose: Not Given Documented by: Aspirin (Aspirin) 650 mg PO Q4H PRN PRN Reason: Pain Atropine Sulfate (Atropine 1% Oph Soln) 1 ml SL Q2H PRN PRN Reason: secretions Last Admin: 07/31/20 06:10 Dose: 1 ml Documented by: Docusate Sodium (Colace) 100 mg PO TID PRN PRN Reason: Constipation Enoxaparin Sodium (Lovenox) 30 mg SUBCUT DAILY [facility] Last Admin: 07/29/20 21:19 Dose: Not Given Documented by: Enoxaparin Sodium (Lovenox) 40 mg SUBCUT DAILY [facility] Last Admin: 07/30/20 07:46 Dose: 40 mg Documented by: Gabapentin (Neurontin) 300 mg PO TID@,,20 [facility] Last Admin: 07/30/20 20:37 Dose: Not Given Documented by: Sodium Chloride (Normal Saline) 1,000 mls @ 75 mls/hr IV .BOLUS ONE Stop: 07/30/20 05:41 Last Admin: 07/29/20 20:42 Dose: 75 mls/hr Documented by: Sodium Chloride (Normal Saline) 250 mls @ 500 mls/hr IV ASDIRECTED [facility] Last Admin: 07/29/20 17:00 Dose: 500 mls/hr Documented by: Ceftriaxone Sodium 1 gm/ (Sodium Chloride) 100 mls @ 200 mls/hr IV Q24H [facility] Last Admin: 07/29/20 18:00 Dose: 200 mls/hr Documented by: Azithromycin 500 mg/ Sodium (Chloride) 250 mls @ 250 mls/hr IV Q24H [facility] Last Admin: 07/29/20 18:46 Dose: 250 mls/hr Documented by: Iopamidol ([id number] (76%)) 100 ml IVPUSH ONETIME STA Stop: 07/29/20 17:12 Last Admin: 07/29/20 17:54 Dose: 100 ml Documented by: Iopamidol (Isovue-370 (76%)) Confirm Administered Dose 100 ml .ROUTE .STK-MED ONE Stop: 07/29/20 17:44 Last Admin: 07/29/20 18:48 Dose: Not Given Documented by: Lorazepam (Ativan) 1 mg IVPUSH Q6H PRN PRN Reason: Anxiety Last Admin: 07/29/20 21:24 Dose: 1 mg Documented by: Lorazepam (Ativan) 1 mg PO Q2H PRN PRN Reason: anxiety/ease of breathing Last Admin: 07/31/20 06:07 Dose: 1 mg Documented by: Morphine Sulfate (Morphine) 2 mg IVPUSH Q2H PRN PRN Reason: Anxiety Last Admin: 07/30/20 00:03 Dose: 2 mg Documented by: Morphine Sulfate (Morphine) 2 mg IM ONETIME ONE Stop: 07/30/20 07:58 Last Admin: 07/30/20 07:57 Dose: 2 mg Documented by: Morphine Sulfate (Morphine 20 Mg/Ml Soln) 2 mg SL Q2H PRN PRN Reason: pain/ease of breathing Last Admin: 07/31/20 06:05 Dose: 0.1 ml Documented by: Omeprazole (Omeprazole) 20 mg PO QAM [facility] Last Admin: 07/30/20 10:23 Dose: Not Given Documented by: Oseltamivir Phosphate (Tamiflu) 75 mg PO DAILY [facility] Stop: 08/02/20 08:01 Last Admin: 07/30/20 10:23 Dose: Not Given Documented by: Sodium Chloride (Saline Flush) 10 ml FLUSH ASDIRECTED PRN PRN Reason: Keep Vein Open - Exam Quality Assessment: Reports: Supplemental Oxygen, DVT Prophylaxis Lungs: Reports: Other (No spontaneous respirations) Cardiovascular: Reports: Other (Absent pulses with no evidence of cardiac activity) Neurological: Reports: Other (No response to pain, verbal stimulation, etc. )
== END 2020-07-31 10:20 | disposition expired | DRG 194 ==
LOC: LL.ED 13:57 → LL.MS 16:40 → UNDOADMIN 16:40 → LL.MS 18:45
PROVIDERS: ADMIT Emergency Medicine; ATTEND Emergency Medicine
DX: J10.1 Influenza due to other identified influenza virus with other respiratory manifestations (principal); J10.01 Influenza due to other identified influenza virus with the same other identified influenza virus pneumonia; I25.810 Atherosclerosis of coronary artery bypass graft(s) without angina pectoris; E78.5 Hyperlipidemia, unspecified; G47.30 Sleep apnea, unspecified; Z51.5 Encounter for palliative care; Z66 Do not resuscitate; I48.0 Paroxysmal atrial fibrillation; J43.1 Panlobular emphysema; I10 Essential (primary) hypertension; E88.09 Other disorders of plasma-protein metabolism, not elsewhere classified; I48.91 Unspecified atrial fibrillation; N28.9 Disorder of kidney and ureter, unspecified; D64.9 Anemia, unspecified; R79.89 Other specified abnormal findings of blood chemistry; I25.10 Atherosclerotic heart disease of native coronary artery without angina pectoris; E78.00 Pure hypercholesterolemia, unspecified; G47.00 Insomnia, unspecified; K21.9 Gastro-esophageal reflux disease without esophagitis; N40.0 Benign prostatic hyperplasia without lower urinary tract symptoms; K44.9 Diaphragmatic hernia without obstruction or gangrene; M19.90 Unspecified osteoarthritis, unspecified site; G89.29 Other chronic pain; M54.9 Dorsalgia, unspecified; M54.2 Cervicalgia; E11.42 Type 2 diabetes mellitus with diabetic polyneuropathy; Z20.828 Contact with and (suspected) exposure to other viral communicable diseases; J84.10 Pulmonary fibrosis, unspecified; K64.9 Unspecified hemorrhoids; E11.22 Type 2 diabetes mellitus with diabetic chronic kidney disease; R45.1 Restlessness and agitation; M81.0 Age-related osteoporosis without current pathological fracture; M85.80 Other specified disorders of bone density and structure, unspecified site; Z96.653 Presence of artificial knee joint, bilateral; Z96.641 Presence of right artificial hip joint; Z79.82 Long term (current) use of aspirin; Z79.899 Other long term (current) drug therapy; Z88.6 Allergy status to analgesic agent; Z95.1 Presence of aortocoronary bypass graft; Z95.5 Presence of coronary angioplasty implant and graft; Z87.442 Personal history of urinary calculi; Z98.49 Cataract extraction status, unspecified eye; Z90.49 Acquired absence of other specified parts of digestive tract; Z98.1 Arthrodesis status; Z79.891 Long term (current) use of opiate analgesic; Z99.81 Dependence on supplemental oxygen; Z89.512 Acquired absence of left leg below knee; Z86.14 Personal history of Methicillin resistant Staphylococcus aureus infection; Z86.19 Personal history of other infectious and parasitic diseases; Z82.49 Family history of ischemic heart disease and other diseases of the circulatory system; Z80.42 Family history of malignant neoplasm of prostate; M08.00 Unspecified juvenile rheumatoid arthritis of unspecified site; L89.309 Pressure ulcer of unspecified buttock, unspecified stage
CPT/HCPCS: 36415; 51702; 71045; 71275; 80053; 81001; 83605; 83735; 83880; 84484; 85025; 85379; 87040; 87804; 94640; 96365; 99222; 99232; 99239; 99285-25; A9270-GY; J0456; J0696; J1650; J2060; J2270; J7030; J7050; Q9967; U0002